=== PATIENT | male | born 1955 | race Caucasian/White ===

== ENCOUNTER 2019-10-13 20:08 | Inpatient (IN) | payer BC, SELFPAY ==
[2019-10-13] VITALS (7 sets, daily range): BP systolic 106–151; BP diastolic 80–105; PULSE 91–106; RESP 18–20; TEMP 36.7–37; O2SAT 92–99; BMI 28.9
--- NOTE | ~2019-10-13 | XR_ITS ---
EXAMINATION: XR chest 2V EXAM DATE: 10/13/2019 20:34 INDICATION: Shortness of breath. Hypertension. TECHNIQUE: Frontal and lateral projections of the chest obtained and reviewed. There is no prior edgar dy for comparison. FINDINGS: The lungs are clear. There are no pleural effusions. The cardiomediastinal silhouette is within normal limits. There is no pneumothorax suspected. The bones and soft tissues are unremarkab le. IMPRESSION: No acute cardiopulmonary findings. Reviewed, dictated and finalized at location G.
--- NOTE | ~2019-10-13 | US_ITS ---
EXAMINATION: US renal BI DATE: 10/19/2019 11:06 INDICATION: Acute kidney injury TECHNIQUE: Multiple grayscale and Doppler ultrasound images of the kidneys were obtained. COMPARISON: None. FINDINGS: The right kidney measures 10.7 x 5.6 x 5.7 cm. The left kidney measures 10.3 x 5.2 x 4.4 cm . The kidneys demonstrate normal parenchymal echogenicity. There is no hydronephrosis. The bladder de monstrates mild wall thickening but is incompletely distended.. IMPRESSION: 1. Normal kidneys without hydronephrosis. 2. Mild bladder wall thickening which could reflect incomplete distention, cystitis, or chronic outle t obstruction. Consider correlation with urinalysis. Reviewed, dictated and finalized at location A. IMPRESSION: 1. Normal kidneys without hydronephrosis. 2. Mild bladder wall thickening which could reflect incomplete distention, cyst itis, or chronic outlet obstruction. Consider correlation with urinalysis.
--- NOTE | ~2019-10-13 | NM_ITS ---
EXAMINATION: NM pulmonary perfusion DATE: 10/13/2019 21:50 INDICATION: Shortness of breath. Pulmonary embolism. TECHNIQUE: 5.38 mCi Tc-99m MAA was administered intravenously for perfusion images. Scintigraphic im ages of the chest were obtained. COMPARISON: Chest 2 views 10/13/2019 FINDINGS: Perfusion images show large defects in the upper lobes and lower lobes. ] IMPRESSION: 1. Large perfusion defects in the upper lobes and lower lobes with normal chest radiographs. The lack of ventilation images precludes assignment of a probability category for pulmonary embolism. Reviewed, dictated and finalized at location A. IMPRESSION: 1. Large perfusion defects in the upper lobes and lower lobes with normal chest radiographs. The lack of ventilation images precludes assignment of a probabil ity category for pulmonary embolism.
--- NOTE | ~2019-10-13 | US_ITS ---
EXAMINATION: US venous doppler [facility] DATE: 10/14/2019 12:18 INDICATION: Pulmonary embolism. TECHNIQUE: Grayscale ultrasound images without and with compression and Doppler ultrasound images of the bilateral lower extremity veins were obtained. COMPARISON: None. FINDINGS: The visualized portions of right common femoral vein, profunda (deep) femoral vein, femoral vein, pop liteal vein, peroneal veins, posterior tibial veins, and greater saphenous vein outflow are patent. The visualized portions of left common femoral vein, profunda femoral vein, and greater saphenous vei n outflow are patent. There is thrombus in left femoral vein, popliteal vein, and posterior tibial an d peroneal veins. IMPRESSION: 1. Acute deep vein thrombosis in the left thigh and calf. Reviewed, dictated and finalized at location A.
--- NOTE | 2019-10-13 20:18 | ECG_ITS ---
Measurements Intervals [place] Rate: 104 P: 87 MA: 164 QRS: 77 QRSD: 89 T: 113 QT: 317 QTc: 418 Interpretive Statements SINUS TACHYCARDIA NONSPECIFIC ST & T-WAVE ABNORMALITY- INF/LAT LEADS BASELINE WANDER- I, II ABNORMAL ECG Electronically Signed On 10-14-2019 7:00:03 CDT by Luke Reardon D.O.
[2019-10-13 20:26] LABS: Basophils Absolute Auto 0.1 K/mm3 (0.0-0.1); Basophils Percent Auto 0.8 % (0.2-1.2); Eosinophils Absolute Auto 0.3 K/mm3 (0-0.3); Eosinophils Percent Auto 2.2 % (0-4.4); Hematocrit 39.9 % (42.0-52.0); Hemoglobin 12.7 g/dL (14.0-18.0); Immature Granulocyte Absolute 0.07 K/mm3 (0.00-0.031); Immature Granulocyte Percent A 0.6 % (0-0.5); Lymphocytes Absolute Auto 1.76 K/mm3 (0.9-3.2); Lymphocytes Percent Auto 14.7 % (18.3-44.2); Mean Corpuscular HGB Conc 31.8 g/dl (32-36); Mean Corpuscular Hemoglobin 28.3 pg (26-34); Mean Corpuscular Volume 88.9 fl (80-100); Mean Platelet Volume 10.8 fl (7.4-10.4); Monocytes Percent Auto 8.4 % (2.6-8.5); Neutrophils Absolute Auto 8.8 K/mm3 (1.3-6.7); Neutrophils Percent Auto 73.3 % (45.5-73.1); Platelet Count Result 217 k/mm3 (150-375); Red Blood Count 4.49 M/mm3 (4.6-6.20); Red Cell Distribution Width 14.1 % (11.5-14.5)
--- NOTE | 2019-10-13 20:26 | ED.GENADULT ---
HPI - General Adult General Chief complaint: Shortness of Breath/Dyspnea Stated complaint: SOB Time Seen by Provider: 10/13/19 20:25 Source: patient and family Mode of arrival: ambulatory Limitations: no limitations History of Present Illness HPI narrative: Patient is a 64-year-old male with a history of hypertension who presents for evaluation of shortness of breath. Patient reports shortness of breath worsening over the past 36 hours, patient states he never has had this feeling before, but has been unable to ascend steps without feeling dyspneic. Patient reports left-sided pain over his chest which is now resolved. Pain occurred approximately 1 hour ago with exertion. No nausea, vomiting or diaphoresis. No pleuritic pain. 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 No history of cancer. No history of DVT. Patient is on any anticoagulation. No recent car or air travel. Dry cough recently, low-grade fever 100 Fahrenheit at home last week. Related Data Home Medications Medication Instructions Recorded Confirmed amlodipine 10 mg PO DAILY 10/13/19 10/13/19 losartan 100 mg PO DAILY 10/13/19 10/13/19 tadalafil 5 mg PO DAILY 10/13/19 10/13/19 Allergies Allergy/AdvReac Type Severity Reaction Status Date / Time No Known Allergies Allergy Verified 10/13/19 20:15 Review of Systems Review of Systems: Narrative: CONSTITUTIONAL: Reports low-grade fever EYES: Denies visual changes, redness, or discharge. ENT: Denies rhinorrhea, congestion, sore throat, or otalgia. CARDIOVASCULAR: Reports chest pain, now resolved, denies palpitations, reports mild left lower extremity swelling RESPIRATORY: Reports dry cough and shortness of breath GASTROINTESTINAL: Denies abdominal pain, nausea, vomiting, or diarrhea. GENITOURINARY: Denies dysuria or hematuria. SKIN: Denies rash or itching. MUSCULOSKELETAL: Chronic lower back pain NEUROLOGIC: Reports mild headache, denies numbness, or weakness. PMFSH Social History Social History Gender identity (if verbalized by the patient): Male Exam Narrative: Exam Narrative: GENERAL: Awake, alert, conversant HEAD: Normocephalic, atraumatic. EYES: PERRLA and EOMI. ENT: Nares clear, no rhinorrhea or epistaxis. Mucous membranes moist. NECK: Supple. CHEST: No respiratory distress, breathing even and non labored no chest wall tenderness HEART: Regular rate, sinus rhythm ABDOMEN:Non distended, non tender EXTREMITIES: Normal range of motion. Mild edema left lower extremity, tenderness along the medial aspect of the right thigh, no calf tenderness, no erythema or warmth SKIN: Warm, dry, no rash. NEURO:No focal deficits. Alert and oriented x3 Course Vital Signs Vital signs: Vital Signs Temperature 37.0 C 10/13/19 20:11 Pulse Rate 105 H 10/13/19 20:11 Respiratory Rate 20 10/13/19 20:11 Blood Pressure 106/105 H 10/13/19 20:11 Pulse Oximetry 92 10/13/19 20:11 Temperature 37.0 C 10/13/19 20:11 Pulse Rate 96 10/13/19 22:22 Respiratory Rate 20 10/13/19 22:22 Blood Pressure 119/80 10/13/19 22:22 Pulse Oximetry 93 10/13/19 22:22 Medical Decision Making MDM Narrative Medical decision making narrative: Patient presented for evaluation of chest and pleuritic chest pain. At the time of assessment, ABCs are intact and vital signs are stable. Mild tachycardia. No reproducible chest wall pain. Clinical symptoms are very concerning for PE. Laboratory results are notable for acute kidney injury which the patient does not have a history of. Patient with elevated d-dimer. Patient cannot obtain CTA due to acute kidney injury, thus obtain a perfusion scan which has multiple filling defects. We will start the patient on heparin. Patient with elevation in troponin. Elevation in BNP, all this is
[2019-10-13 20:38] LABS: Blood Urea Nitrogen 39 mg/dL (9-20); Calcium 9.4 mg/dL (8.4-10.2); Carbon Dioxide 20 mmol/L (22-30); Chloride 113 mmol/L (98-107); Estimated Glomerular Filt Rate 23; Glucose 153 mg/dL (75-110); Potassium 4.2 mmol/L (3.4-5.0); Sodium 140 mmol/L (137-145)
[2019-10-13 21:14] LABS: D Dimer 9.32 ug/mL (<0.48)
[2019-10-13 22:26] LABS: INR 1.1; Prothrombin Time 13.9 Seconds (11.1-14.7)
[2019-10-13 22:27] LABS: Partial Thromboplastin Time 32.7 SECONDS (22.3-36.8)
[2019-10-13 22:38] LABS: NT Pro B Type Natriuretic Pept 2590 PG/ML (5-100); Troponin I 0.577 ng/mL (0.000-0.034)
[2019-10-13] MEDS: HEPARIN SOD/D5W 100 UNITS/ML 25,000 UNITS/250 ML BAG 15 UNITS IV CONT (23:22)
[2019-10-13] MEDS: HEPARIN SODIUM 5,000 UNITS/ML VIAL 7500 UNITS IV PUSH (23:23)
--- NOTE | 2019-10-13 23:34 | PM.IMHP ---
H&P: HPI History of Present Illness Chief complaint: Bilateral Pulminary Emboli, NANCY Narrative: Bill Linton is a 64 year old male who has a past medical history of having hypertension. The patient has not had any past history of any heart or lung disease. He has not had any fever chills. No nausea no vomiting no diarrhea. No fever or chills. The patient has been more short of breath for the last 36 hours. 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 The patient has been less active. The patient attempted to cut grass yesterday and was more short of breath. The patient has also been complaining of some swelling to the left leg and more discomfort to the left leg. [place] like maybe he pulled a muscle. No recent travel, no recent injury, no recent surgery. No history of any cancer. Patient has been eating and drinking okay. He has not had any past history of any chronic renal disease. 2.8 today. Troponin 0.577. BNP 2590. Was read as no acute cardiopulmonary findings. The patient is on room air. IV bolus and then started on heparin drip per protocol. Blood pressure was noted to be 128/97. Patient stated he did take his blood pressure medicine today. Unable to obtain a CT scan due to his acute renal failure. It was noted and urinary no that perforation scan was noted to have multiple filling defects. Date of service is 10/13/2019 Review of Systems Review of Systems: All systems reviewed & are unremarkable except as noted in HPI and below Constitutional: Constitutional: Reports as per HPI and Reports no additional constitutional complaints Eyes: Eyes: Reports as per HPI and Reports no additional eye complaints ENT: Reports system reviewed and no additional complaints, except as documented and Reports Normal hearing present Cardiovascular: Cardiovascular: Reports no additional cardiovascular complaints Respiratory: Respiratory: Reports no additional respiratory complaints and Reports no additional respiratory complaints Gastrointestinal: Gastrointestinal: Reports as per HPI and Reports no additional gastrointestinal complaints Musculoskeletal: Musculoskeletal: Reports no additional musculoskeletal complaints Integumentary/Breasts: Skin/Breast: Reports system reviewed and no additional complaints, except as docu and Reports as per HPI Neurologic: Reports system reviewed and no additional complaints, except as documented, Reports as per HPI and Reports Normal hearing present Psychiatric: Psychiatric: Reports no additional psychiatric complaints and Reports as per HPI Endocrine: Endocrine: Reports no additional endocrine complaints Hematologic/Lymphatic: Hematologic/Lymphatic: Reports no additional hematologic/lymphatic complaints Allergic/Immunologic: Allergic/Immunologic: Reports no additional allergic/immunologic complaints PMFSH Past Medical History Medical History (Updated 10/13/19 @ 23:43 by Meenakshi Hansen NP) Hypertension Hypogonadism Surgical History Surgical History (Updated 10/13/19 @ 23:43 by Meenakshi Hansen NP) S/P appendectomy Family History Family History (Updated 10/13/19 @ 23:46 by Meenakshi Hansen NP) Mother Renal failure Father COPD (chronic obstructive pulmonary disease) Social History Social History (Updated 10/13/19 @ 23:48 by Meenakshi Hansen NP) Social History: The patient is and lives with a significant other her name is thea hernández. He desires to have her is his durable power deputy attorney general for healthcare. The patient has 6 children. Patient desires to be a full code. The patient quit smoking approximately 1 year ago. The patient smoked for about a total of 8 years. He has a pack a cigarettes a day. 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 He says that he drinks 2 or 3 times a week. 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 Smoking status: Former smoker Al
--- NOTE | 2019-10-13 23:47 | ADMGEN ---
This patient, Bill Linton, was admitted to IMU Room 214-01 FROM ER 10/13/19 2340. Patient/family oriented to hospital policies and general routines including ID bracelet, bed and alarms, visiting hours, pain management, procedures, bathroom and other care routines, personal items, smoking policy, room service/diet, and visiting hours. Valuables list has been completed. Information on how to activate the Rapid Response Team has been discussed. Patient/Family are encouraged to report perceived risks to care and to ask questions if they do not understand what they are told or what they should do.
[2019-10-14] VITALS (15 sets, daily range): BP systolic 121–167; BP diastolic 68–106; PULSE 73–91; RESP 16–20; TEMP 36.1–36.8; O2SAT 95–99
--- NOTE | 2019-10-14 | ECHO_ITS ---
Patient Info Name: Bill Linton Age: 64 years : 1955 Gender: Male Ht: 72 in Wt: 260 lbs BSA: 2.49 m2 HR: 80 bpm BP: 129 / 78 mmHg Heart Rhythm: Sinus Rhythm Technical Quality: Good Exam Date: 10/14/2019 9:38 AM Exam Location: [facility] Patient Status: Inpatient Admit Date: 10/13/2019 Staff Ordering Physician: Meenakshi Hansen NP Lead Python Developer: Kade Euceda RDCS Attending Provider: Speedy Bruce MD Referring Physician: Jade ANTON; Exam Type: CA echo dop color flow w con Study Info Indications I26.99 - Other pulmonary embolism without acute cor pulmonale Complete two-dimensional, color flow and Doppler transthoracic echocardiogram is performed with contrast to opacify the left ventrical and to improve the deliniation of the left ventrical endocarial boarders. Contrast/Agitated Saline Contrast/Ag. Saline: Definity Amount: 2.00 ml Administered By: Jyoti Caba RN Existing IV Access: Yes History/Risk Factors Bilateral pulmonary emboli w/ NANCY; HTN, SOB, trops elevated, BNP 2590. Summary 1. Left ventricular systolic function is normal, estimated at 65-70%. 2. Left ventricular chamber dimension is normal. 3. Definity contrast injected to improve visualization. 4. Right ventricular chamber dimension is mildly enlarged. 5. No significant valvular disease. 6. Right ventricle is enlarged but appears to be exhibiting good systolic function. Left Ventricle Left ventricular chamber dimension is normal. Left ventricular systolic function is normal, estimated at 65-70%. There is mild concentric increased left ventricular wall thickness. The left ventricular diastolic function is grade I diastolic dysfunction. Definity contrast injected to improve visualization. Right Ventricle Right ventricular chamber dimension is mildly enlarged. Left Atria Left atrial chamber dimension is normal. Right Atria Right atrial chamber dimension is normal. Aortic Valve The aortic valve is normal. Pulmonic Valve The pulmonic valve is not well visualized. Mitral Valve The mitral valve has normal leaflets. Tricuspid Valve The tricuspid valve leaflets are not well visualized. Pericardium/Pleural The pericardium appears normal. Aorta The aortic root size at the sinus of Valsalva is normal. Left Ventricular Outflow Tract Name Value Normal LVOT 2D LVOT Diameter 2.25 cm LVOT Doppler LVOT Peak Gradient 3 mmHg LVOT Mean Gradient 2 mmHg LVOT VTI 12.40 cm LVOT VTI/AV VTI Ratio 0.74 LVOT Stroke Volume 49.17 ml LVOT CO 3.99 l/min LVOT CI 1.60 L/min/m2 Mitral Valve Name Value Normal MV Doppler
[2019-10-14 06:11] LABS: Basophils Absolute Auto 0.1 K/mm3 (0.0-0.1); Basophils Percent Auto 0.6 % (0.2-1.2); Eosinophils Absolute Auto 0.4 K/mm3 (0-0.3); Eosinophils Percent Auto 2.7 % (0-4.4); Hematocrit 38.8 % (42.0-52.0); Hemoglobin 12.5 g/dL (14.0-18.0); Immature Granulocyte Absolute 0.07 K/mm3 (0.00-0.031); Immature Granulocyte Percent A 0.5 % (0-0.5); Lymphocytes Absolute Auto 2.94 K/mm3 (0.9-3.2); Mean Corpuscular HGB Conc 32.2 g/dl (32-36); Mean Corpuscular Hemoglobin 28.4 pg (26-34); Mean Corpuscular Volume 88.2 fl (80-100); Mean Platelet Volume 10.5 fl (7.4-10.4); Monocytes Absolute Auto 1.1 K/mm3 (0.1-0.6); Monocytes Percent Auto 8.7 % (2.6-8.5); Neutrophils Absolute Auto 8.2 K/mm3 (1.3-6.7); Neutrophils Percent Auto 64.5 % (45.5-73.1); Platelet Count Result 199 k/mm3 (150-375); Red Cell Distribution Width 14.1 % (11.5-14.5); White Blood Count 12.8 K/mm3 (4.5-10.0)
[2019-10-14 06:20] LABS: Partial Thromboplastin Time 104.6 SECONDS (22.3-36.8)
[2019-10-14 06:21] LABS: Alanine Aminotransferase 66 U/L (4-50); Alkaline Phosphatase 76 U/L (38-126); Aspartate Amino Transferase 40 U/L (17-59); Bilirubin,Total 0.3 mg/dL (0.2-1.3); Blood Urea Nitrogen 40 mg/dL (9-20); Calcium 9.1 mg/dL (8.4-10.2); Carbon Dioxide 19 mmol/L (22-30); Chloride 113 mmol/L (98-107); Estimated CRCL calculation 38 ml/min; Estimated Glomerular Filt Rate 26; Glucose 105 mg/dL (75-110); Magnesium 2.1 mg/dL (1.6-2.3); Potassium 4.2 mmol/L (3.4-5.0); Sodium 141 mmol/L (137-145)
[2019-10-14 07:58] LABS: Troponin I 0.989 ng/mL (0.000-0.034)
--- NOTE | 2019-10-14 09:04 | PM.IMPN ---
Progress Note: A&P Assessment and Plan (1) Pulmonary embolism: Qualifiers: Acute cor pulmonale presence: unspecified Chronicity: acute Pulmonary embolism type: unspecified Qualified Code(s): I26.99 - Other pulmonary embolism without acute cor pulmonale Code(s): I26.99 - Other pulmonary embolism without acute cor pulmonale Status: Suspected Assessment and Plan: Patient presents with acute episodes of SOB x 2 days with left-sided chest pain started when mowing the yard over the weekend, intermittent L leg swelling x 2-3 weeks. No previous cardiac history noted. No previous personal history of VTE or malignancy. V/Q scan demonstrates large perfusion defects in the upper lobes and lower lobes with normal chest radiographs - suspect bilateral PE. CTA not obtained due to acute renal failure. Heparin gtt initiated. (2) DVT (deep venous thrombosis): Qualifiers: DVT location: lower extremity Affected thrombotic vein of extremity: femoral Chronicity: acute Laterality: left Qualified Code(s): I82.412 - Acute embolism and thrombosis of left femoral vein Code(s): I82.409 - Acute embolism and thrombosis of unspecified deep veins of unspecified lower extremity Status: Acute Assessment and Plan: Left femoral, popliteal vein, posterior tib and peroneal vein DVT. See above. Continue heparin gtt for now given the extent of DVT and bilateral PEs. Care coordination inquiring pricing for NOAC. (3) Elevated troponin: Code(s): R79.89 - Other specified abnormal findings of blood chemistry Status: Acute Assessment and Plan: In the setting of bilateral PE. Trending down this AM. Brief episodes of chest pain x2 while feeling short of breath this weekend, none this AM. 0.577 -> 1.31 --> 1.30 --> 0.989. :: BNP 2590 Echocardiogram shows mild RV enlargement with normal systolic function EF 65-70%. Appreciate cardiology consultation and recommendations. (4) Acute renal failure: Qualifiers: Acute renal failure type: unspecified Qualified Code(s): N17.9 - Acute kidney failure, unspecified Code(s): N17.9 - Acute kidney failure, unspecified Status: Acute Assessment and Plan: Cr 2.8 yesterday, improved to 2.5 this AM. Unsure of chronicity or baseline, no previous labs for comparison. Gentle IV hydration, avoid nephrotoxic agents. Trend renal function and monitor urine output. (5) Hypertension: Qualifiers: Hypertension type: essential hypertension Qualified Code(s): I10 - Essential (primary) hypertension Code(s): I10 - Essential (primary) hypertension Status: Chronic Assessment and Plan: BP 129/78 this AM maintained on home Norvasc. Home losartan held due to renal function. Monitor BP and adjust treatment as needed. Subjective Date/time seen: 10/14/19 0900 Interval history: Mr. Linton is a 64yo M admitted with exertional dyspnea and chest pain with suspected bilateral pulmonary emboli. He describes that Tuesday 10/10 he was mowing his lawn and noticed new shortness of breath. He describes he had a pulling sensation to his left chest that was transient during the time he was trying to catch his breath. He notes the chest pain went away and then recurred yesterday during another episode where he could not catch his breath. No radiation to jaw or arm, diaphoresis or nausea with the chest pain. He tells me he has no chest pain this morning. He does not feel short of breath at rest. He denies nausea, vomiting, or abdominal pain. Tells me his left leg has been intermittently swelling over the last 2 to 3 weeks. He is feeling well this morning and his only complaint is that he wants to eat. Review of Systems Review of Systems: Narrative: Twelve systems were reviewed with pertine
[2019-10-14] MEDS: AMLODIPINE BESYLATE 5 MG TABLET 10 MG PO (09:24)
[2019-10-14] MEDS: PERFLUTREN LIPID MICROSPHERES 1.5 ML VIAL DILUTED TO 10 ML TOTAL VOLUME (10:15)
[2019-10-14] MEDS: SODIUM CHLORIDE 0.9% IV 1,000 ML 70 ML IV CONT (10:21)
--- NOTE | 2019-10-14 11:42 | PM.CNCAR ---
Assessment and Plan Additional Plan 64-year-old white male with ; Elevation in troponin with bilateral pulmonary embolization presumably related to RV pressure overload/strain. I do not see any clinical evidence or electrocardiographic evidence to make me suspicious of an acute coronary syndrome. The patient did have symptoms very suspicious of a PE with likely a left lower extremity DVT leading up to all this. He has probably been showering embolic events for awhile since there appeared to be perfusion deficits in both lungs. I understand the reason that a CTA was not done I do not understand the reason that a ventilation scan was not done at the same time as his nuclear perfusion study last evening. An echocardiogram has already been requested by the primary service after rounds I will be able to read that and provide any further recommendations. At this point the only cardiovascular recommendation is to provide systemic anticoagulation. The oral anticoagulation drugs should be investigated by the case workers to see if any of them are affordable. I did speak to the patient has some length about the other option which would be warfarin. Vj Song MD [facility] History of Present Illness History of Present Illness Consult date/time: Date of service: 10/14/19 11:42 Reason For Visit: Bilateral Pulminary Emboli, NANCY Narrative: This is a 64-year-old patient I am seeing at the request of the hospitalist service because of elevation in troponin levels and exertional dyspnea. Order so as the patient is also being seen because of exertional chest pain, I am not obtaining any history of exertional chest pain at this time. Patient states that he came to the emergency room yesterday because of problematic dyspnea with a 2 exertion that began Monday of last week. He states he is normally able to conduct at usual household activities without undue shortness of breath. On Monday he noted he was trying to mow his lawn and was unable to do the job without stopping several times because of dyspnea. After that he started to notice that other activities that required more than modest walking were triggering shortness of breath when this continue to be problematic he came to the emergency room for evaluation. He is in denies experiencing any chest pain pressure or heaviness he denies any orthopnea or PND. He states he has had some left lower extremity edema in a positional fashion for about 2 months. He has not noticed any redness or inflammation in the leg but he has noticed that when he is up on his feet most of the day his left leg becomes edematous and he has never had this noticed before. His past medical history is mostly consistent with hypertension and a prior history of smoking he quit smoking a number of years ago however. Denies any knowledge of diabetes or dyslipidemia. The patient being seen in the emergency room was found to have evidence of bilateral pulmonary emboli on a perfusion scan that was done. He had a perfusion scan done rather than a CTA because of renal insufficiency. His laboratory data demonstrated a creatinine of 2.8 in the emergency room. He was given the diagnosis of acute renal failure, I am not sure that we know this is acute or at least previously on diagnosed. The patient's ECG does not show any acute abnormalities an echocardiogram was done this morning which has yet to be interpreted. Troponin levels were done which are slightly elevated but not significantly rising or falling and for these reasons we were consulted to see him today. He is resting comfortably in bed with an IV heparin infusion running at this time. At the end of my interview with him the patient is being taken down to Radiology for a venous Doppler of his lower extremities. Review of Systems Constitutional: Constitutional: Reports fatigue Eyes: Eyes: Reports no additional eye complaints ENT: Reports system reviewed and no additional complaints, except as
[2019-10-14 11:52] LABS: Partial Thromboplastin Time 67.6 SECONDS (22.3-36.8)
[2019-10-14] MEDS: HEPARIN SODIUM 5,000 UNITS/ML VIAL 4000 UNITS IV PUSH (12:43)
[2019-10-14] MEDS: HEPARIN SOD/D5W 100 UNITS/ML 25,000 UNITS/250 ML BAG 17 UNITS IV CONT (15:52)
[2019-10-14 19:15] LABS: Partial Thromboplastin Time 105.1 SECONDS (22.3-36.8)
[2019-10-15] VITALS (13 sets, daily range): BP systolic 127–159; BP diastolic 75–82; PULSE 64–98; RESP 18–20; TEMP 35.9–36.9; O2SAT 97–98
[2019-10-15] MEDS: SODIUM CHLORIDE 0.9% IV 1,000 ML 70 ML IV CONT (01:50)
[2019-10-15] MEDS: HEPARIN SOD/D5W 100 UNITS/ML 25,000 UNITS/250 ML BAG 15 UNITS IV CONT (07:15)
[2019-10-15 08:11] LABS: Basophils Absolute Auto 0.1 K/mm3 (0.0-0.1); Basophils Percent Auto 0.8 % (0.2-1.2); Eosinophils Absolute Auto 0.4 K/mm3 (0-0.3); Hematocrit 39.9 % (42.0-52.0); Hemoglobin 12.7 g/dL (14.0-18.0); Immature Granulocyte Absolute 0.05 K/mm3 (0.00-0.031); Immature Granulocyte Percent A 0.5 % (0-0.5); Lymphocytes Absolute Auto 2.78 K/mm3 (0.9-3.2); Lymphocytes Percent Auto 25.6 % (18.3-44.2); Mean Corpuscular HGB Conc 31.8 g/dl (32-36); Mean Corpuscular Hemoglobin 28.5 pg (26-34); Mean Corpuscular Volume 89.7 fl (80-100); Mean Platelet Volume 10.7 fl (7.4-10.4); Monocytes Percent Auto 8.7 % (2.6-8.5); Neutrophils Absolute Auto 6.6 K/mm3 (1.3-6.7); Neutrophils Percent Auto 60.4 % (45.5-73.1); Platelet Count Result 200 k/mm3 (150-375); Red Blood Count 4.45 M/mm3 (4.6-6.20); Red Cell Distribution Width 14.1 % (11.5-14.5); White Blood Count 10.9 K/mm3 (4.5-10.0)
[2019-10-15 08:24] LABS: Partial Thromboplastin Time 80.5 SECONDS (22.3-36.8)
[2019-10-15 08:26] LABS: Blood Urea Nitrogen 39 mg/dL (9-20); Carbon Dioxide 19 mmol/L (22-30); Chloride 111 mmol/L (98-107); Estimated CRCL calculation 34 ml/min; Estimated Glomerular Filt Rate 23; Glucose 105 mg/dL (75-110); Magnesium 1.9 mg/dL (1.6-2.3); Phosphorus 3.4 mg/dL (2.5-4.5); Potassium 4.6 mmol/L (3.4-5.0); Sodium 139 mmol/L (137-145)
[2019-10-15] MEDS: AMLODIPINE BESYLATE 5 MG TABLET 10 MG PO (09:11)
--- NOTE | 2019-10-15 09:52 | PM.PNCARD ---
Progress Note: A&P Assessment and Plan (1) Elevated troponin: Code(s): R79.89 - Other specified abnormal findings of blood chemistry Status: Acute Assessment and Plan: Elevated troponin with bilateral pulmonary embolism most likely related to right ventricular pressure overload/strain. Echo 10/14/2019: Left ventricular systolic function is normal, estimated at 65-70%. Left ventricular chamber dimension is normal. Definity contrast injected to improve visualization. Right ventricular chamber dimension is mildly enlarged. No significant valvular disease. Right ventricle is enlarged but appears to be exhibiting good systolic function. No ischemic symptoms. (2) Pulmonary embolism: Qualifiers: Acute cor pulmonale presence: unspecified Chronicity: acute Pulmonary embolism type: unspecified Qualified Code(s): I26.99 - Other pulmonary embolism without acute cor pulmonale Code(s): I26.99 - Other pulmonary embolism without acute cor pulmonale Status: Suspected Assessment and Plan: Management per hospitalist (3) DVT (deep venous thrombosis): Qualifiers: DVT location: lower extremity Affected thrombotic vein of extremity: femoral Chronicity: acute Laterality: left Qualified Code(s): I82.412 - Acute embolism and thrombosis of left femoral vein Code(s): I82.409 - Acute embolism and thrombosis of unspecified deep veins of unspecified lower extremity Status: Acute Assessment and Plan: Management per hospital Additional Plan No further cardiac recommendations Cardiology will sign off. Plan discussed with Dr Shah [id number] 10/15/2019 Subjective Date/time seen: 10/15/19 09:52 Interval history: Follow-up for: Elevated troponin, bilateral pulmonary embolus and DVT Date of service: 10/15/2019 Subjective: Denied chest discomfort, shortness of breath, lightheadedness or palpitations. Review of Systems Constitutional: Constitutional: Denies fatigue Eyes: Eyes: Reports no additional eye complaints ENT: Reports Normal hearing present and Denies dizziness Cardiovascular: Cardiovascular: Reports leg edema and Denies dyspnea on exertion Respiratory: Respiratory: Denies dyspnea on exertion Gastrointestinal: Gastrointestinal: Denies abdominal pain, Denies nausea and Denies vomiting Genitourinary: Genitourinary: Denies hematuria Musculoskeletal: Musculoskeletal: Denies back pain Integumentary/Breasts: Skin/Breast: Reports dry skin Neurologic: Reports Normal hearing present and Denies dizziness Psychiatric: Psychiatric: Denies anxiety Endocrine: Endocrine: Denies fatigue Hematologic/Lymphatic: Hematologic/Lymphatic: Denies easy bleeding and Denies easy bruising Allergic/Immunologic: Allergic/Immunologic: Denies wheezing Exam Const: General: cooperative, comfortable and no acute distress Nutritional Appearance: overweight Orientation/consciousness: patient oriented x3 Limitations: no limitations HENMT: Mouth: Yes moist mucous membranes Eyes: Sclera: sclerae normal Pupils: Equal, round and reactive pupils present Neck: Neck: supple Other: Normal carotid upstrokes no bruits Resp: Effort & Inspection: normal respiratory effort Auscultation: clear to auscultation bilaterally Cardio: Rate: regular rate Rhythm: regular rhythm Heart sounds: no murmurs Peripheral pulses: Peripheral pulses 2+ throughout Other: No murmur no gallop no rub, PMI is not palpable GI: GI Palp: Yes Soft to palpation Auscultation: normal bowel sounds Skin: General skin exam: normal color Neuro: General: patient oriented x3 Cranial nerves: Yes Equal, round and reactive pupils present Cognition (Neuro): normal cognition Speech: normal speech Extrem: General: no pedal edema, no calf tenderness and other (Left lower leg slightly larger than right) Psych: Appearance: grossly n
[2019-10-15 13:50] LABS: Partial Thromboplastin Time 75.7 SECONDS (22.3-36.8)
--- NOTE | 2019-10-15 15:23 | PM.IMPN ---
Progress Note: A&P Assessment and Plan (1) Pulmonary embolism: Qualifiers: Acute cor pulmonale presence: unspecified Chronicity: acute Pulmonary embolism type: unspecified Qualified Code(s): I26.99 - Other pulmonary embolism without acute cor pulmonale Code(s): I26.99 - Other pulmonary embolism without acute cor pulmonale Status: Suspected Assessment and Plan: ------imaging studies show probable blood clot in which the patient is on a heparin drip for. He had shortness of breath and chest pain before coming into the hospital which have both improved. He is now walking around the room without any issue. He has decided that he is going to go with the warfarin and understands the necessity of blood draws. He needs to be bridged and I talked to him about Lovenox injections. If insurance is willing to cover, the patient is interested in the injections so he can be discharged from the hospital sooner. If not he understands he will need to be here for 5 days. I have called his primary care physician, Dr. Speedy Vargas [phone] who was not in the office today but will be tomorrow. I will give him a call then and see if he will follow the INR. Continue heparin at this time (2) DVT (deep venous thrombosis): Qualifiers: DVT location: lower extremity Affected thrombotic vein of extremity: femoral Chronicity: acute Laterality: left Qualified Code(s): I82.412 - Acute embolism and thrombosis of left femoral vein Code(s): I82.409 - Acute embolism and thrombosis of unspecified deep veins of unspecified lower extremity Status: Acute Assessment and Plan: -----extensive Left femoral, popliteal vein, posterior tib and peroneal vein DVT. Likely due to more sedentary life since the [id number] order. No family history or personal history of blood clots. Continue heparin (3) Elevated troponin: Code(s): R79.89 - Other specified abnormal findings of blood chemistry Status: Acute Assessment and Plan: -----In the setting of bilateral PE. Echo does not show any right heart strain. Cardiology does not suspect ACS. No chest pain reported (4) Hypertension: Qualifiers: Hypertension type: essential hypertension Qualified Code(s): I10 - Essential (primary) hypertension Code(s): I10 - Essential (primary) hypertension Status: Chronic Assessment and Plan: ------last blood pressure 133/79. Continue [facility] (5) Chronic kidney disease: Code(s): N18.9 - Chronic kidney disease, unspecified Status: Acute Assessment and Plan: -----records from October 2018 shows CKD with the last creatinine 2.23. Today he is at 2.8. He likely has chronic kidney disease although the patient is unaware of this. I told him he would benefit from seeing a client leader and that he should talk to his primary care physician about that. He agreed. Time Spent With Patient Time with patient: 25 - 35 minutes Subjective Date/time seen: 10/15/19 15:23 Interval history: Pt is a 64-year-old male here for pulmonary emboli. Patient was seen today and is doing great. He has no shortness of breath, dyspnea on exertion, chest pain, fevers, chills, abdominal pain, or a lack of appetite. He says that since he has been laid off for the last 7 weeks he has been sitting around more. He has never had a history of a blood clot or family history of blood clots. He said that he would be willing to give himself Lovenox injections and I talked to his live-in girlfriend Lakeshia who said she would help. Review of Systems Review of Systems: All systems reviewed & are unremarkable except as noted in HPI and below Exam Narrative: Exam Narrative: General: Well developed well nourished patient walking around the room in no acute distress HEENT: normocephalic Neck: supple Neuro: Alert and oriented x4 CV:RRR. Telemetry without any significant alarm
[2019-10-15] MEDS: WARFARIN (*PBKC) 5 MG TABLET PO (16:49)
--- NOTE | 2019-10-15 17:09 | PC.NURSE ---
This patient, Bill Linton, was transferred to [facility] on 10/15/19 at 1700. Personal belongings sent with patient. Report given to GLEN Agudelo. Appropriate documentation sent with patient.
--- NOTE | 2019-10-15 17:53 | PC.NURSE ---
transfer from IMU today at 1710. Resting in bed without any complaints. Call light in reach instructed to call for assistance as needed.
[2019-10-16] VITALS (12 sets, daily range): BP systolic 130–147; BP diastolic 69–86; PULSE 61–87; RESP 16–18; TEMP 36.4–37.4; O2SAT 95–98
[2019-10-16] MEDS: HEPARIN SOD/D5W 100 UNITS/ML 25,000 UNITS/250 ML BAG 15 UNITS IV CONT (01:08)
[2019-10-16 05:16] LABS: INR 1.1; Prothrombin Time 14.1 Seconds (11.1-14.7)
[2019-10-16 05:17] LABS: Partial Thromboplastin Time 61.2 SECONDS (22.3-36.8)
[2019-10-16 05:30] LABS: Hematocrit 35.4 % (42.0-52.0); Hemoglobin 11.5 g/dL (14.0-18.0); Mean Corpuscular HGB Conc 32.5 g/dl (32-36); Mean Corpuscular Hemoglobin 28.6 pg (26-34); Mean Corpuscular Volume 88.1 fl (80-100); Mean Platelet Volume 10.9 fl (7.4-10.4); Platelet Count Result 191 k/mm3 (150-375); Red Blood Count 4.02 M/mm3 (4.6-6.20); Red Cell Distribution Width 13.8 % (11.5-14.5); White Blood Count 10.4 K/mm3 (4.5-10.0)
[2019-10-16 05:31] LABS: Blood Urea Nitrogen 38 mg/dL (9-20); Calcium 9.1 mg/dL (8.4-10.2); Carbon Dioxide 23 mmol/L (22-30); Chloride 110 mmol/L (98-107); Estimated CRCL calculation 34 ml/min; Estimated Glomerular Filt Rate 23; Glucose 101 mg/dL (75-110); Potassium 4.4 mmol/L (3.4-5.0); Sodium 138 mmol/L (137-145)
[2019-10-16] MEDS: AMLODIPINE BESYLATE 5 MG TABLET 10 MG PO (08:27)
[2019-10-16] MEDS: ENOXAPARIN 120 MG/0.8 ML SYRINGE SUB-Q ×2 (12:49→23:27)
--- NOTE | 2019-10-16 16:25 | PM.IMPN ---
Progress Note: A&P Assessment and Plan (1) Pulmonary embolism: Qualifiers: Acute cor pulmonale presence: unspecified Chronicity: acute Pulmonary embolism type: unspecified Qualified Code(s): I26.99 - Other pulmonary embolism without acute cor pulmonale Code(s): I26.99 - Other pulmonary embolism without acute cor pulmonale Status: Suspected Assessment and Plan: ------imaging studies show probable blood clot. He is now on Lovenox with warfarin. INR 1.1. He is unable to bridge at home since he has no one to watch his INR. Plan to keep him here in the hospital another 4 days, at least, until he is therapeutic. Goal INR will 2-3. He had shortness of breath and chest pain before coming into the hospital which have both improved. He is now walking around the room without any issue. I have called his primary care physician, Dr. Speedy Vargas who is going to see him outpatient next Monday (2) DVT (deep venous thrombosis): Qualifiers: DVT location: lower extremity Affected thrombotic vein of extremity: femoral Chronicity: acute Laterality: left Qualified Code(s): I82.412 - Acute embolism and thrombosis of left femoral vein Code(s): I82.409 - Acute embolism and thrombosis of unspecified deep veins of unspecified lower extremity Status: Acute Assessment and Plan: -----extensive Left femoral, popliteal vein, posterior tib and peroneal vein DVT. Likely due to more sedentary life since the [id number] order. No family history or personal history of blood clots. Continue Lovenox and warfarin (3) Elevated troponin: Code(s): R79.89 - Other specified abnormal findings of blood chemistry Status: Acute Assessment and Plan: -----In the setting of bilateral PE. Echo does not show any right heart strain. Cardiology does not suspect ACS. No chest pain reported (4) Hypertension: Qualifiers: Hypertension type: essential hypertension Qualified Code(s): I10 - Essential (primary) hypertension Code(s): I10 - Essential (primary) hypertension Status: Chronic Assessment and Plan: ------last blood pressure 146/79. Continue Norvasc (5) Chronic kidney disease: Code(s): N18.9 - Chronic kidney disease, unspecified Status: Acute Assessment and Plan: -----records from October 2018 shows CKD with the last creatinine 2.23. Today he is at 2.8. He likely has chronic kidney disease although the patient is unaware of this. I told him he would benefit from seeing a pediatric ophthalmologist and that he should talk to his primary care physician about that. He agreed. Subjective Date/time seen: 10/16/19 16:25 Interval history: Pt is a 64-year-old male here for pulmonary emboli. Patient was seen today and is doing great. He has no shortness of breath, dyspnea on exertion, chest pain, fevers, chills, abdominal pain, or a lack of appetite. No new complaints. Exam Narrative: Exam Narrative: General: Well developed well nourished patient walking around the room in no acute distress HEENT: normocephalic Neck: supple Neuro: Alert and oriented x4 CV:RRR. Telemetry without any significant alarm reviews Resp:CTA Abd: Soft, non distended. No pain to palpation. Positive bowel sounds Extremities: Left leg mildly more swollen. No erythema or tenderness. Sensation and pulses intact. Objective Data Vital Signs Vital Signs: Vital Signs - 24 hr 10/15/19 17:08 10/15/19 20:00 10/15/19 22:00 Temperature 96.7 F L 98.4 F Pulse Rate 64 67 79 Respiratory Rate 20 20 Blood Pressure 144/80 H 133/76 Pulse Oximetry 98 97 10/16/19 00:00 10/16/19 02:00 10/16/19 04:00 Temperature 97.9 F Pulse Rate 77 62 83 Respiratory Rate 16 Blood Pressure 130/77 Pulse Oximetry 95 10/16/19 05:45 10/16/19 08:00 10/16/19 10:00 Temperature 98.4 F 97.6 F Pulse Rate 66 66 69 Respiratory Rate 16 16 16 Blood Pressure
[2019-10-16] MEDS: WARFARIN (*PBKC) 5 MG TABLET PO (16:52)
[2019-10-17] VITALS (10 sets, daily range): BP systolic 120–141; BP diastolic 67–78; PULSE 64–88; RESP 12–16; TEMP 36.8–37.2; O2SAT 94–97
[2019-10-17 06:24] LABS: Hematocrit 35.4 % (42.0-52.0); Hemoglobin 11.3 g/dL (14.0-18.0); Mean Corpuscular HGB Conc 31.9 g/dl (32-36); Mean Corpuscular Hemoglobin 28.2 pg (26-34); Mean Corpuscular Volume 88.3 fl (80-100); Mean Platelet Volume 10.7 fl (7.4-10.4); Platelet Count Result 182 k/mm3 (150-375); Red Blood Count 4.01 M/mm3 (4.6-6.20); Red Cell Distribution Width 13.7 % (11.5-14.5)
[2019-10-17 06:32] LABS: INR 1.1; Prothrombin Time 13.6 Seconds (11.1-14.7)
[2019-10-17] MEDS: ENOXAPARIN 120 MG/0.8 ML SYRINGE SUB-Q ×2 (08:44→19:58)
[2019-10-17] MEDS: AMLODIPINE BESYLATE 5 MG TABLET 10 MG PO (08:45)
--- NOTE | 2019-10-17 13:34 | PM.IMPN ---
Progress Note: A&P Assessment and Plan (1) Pulmonary embolism: Qualifiers: Acute cor pulmonale presence: unspecified Chronicity: acute Pulmonary embolism type: unspecified Qualified Code(s): I26.99 - Other pulmonary embolism without acute cor pulmonale Code(s): I26.99 - Other pulmonary embolism without acute cor pulmonale Status: Suspected Assessment and Plan: ------imaging studies show probable blood clot. He is now on Lovenox with warfarin. INR 1.1. He is unable to bridge at home since he has no one to watch his INR. Plan to keep him here in the hospital until his INR is theraputic, minimum of 5 days with bridge. Goal INR will 2-3. He had shortness of breath and chest pain before coming into the hospital which have both improved. He is now walking around the room without any issue. I have called his primary care physician, Dr. Speedy Vargas who is going to see him outpatient next Monday. Tele will be discontinued since has no cardiac complaints and his echo has been reviewed. (2) DVT (deep venous thrombosis): Qualifiers: DVT location: lower extremity Affected thrombotic vein of extremity: femoral Chronicity: acute Laterality: left Qualified Code(s): I82.412 - Acute embolism and thrombosis of left femoral vein Code(s): I82.409 - Acute embolism and thrombosis of unspecified deep veins of unspecified lower extremity Status: Acute Assessment and Plan: -----extensive Left femoral, popliteal vein, posterior tib and peroneal vein DVT. Likely due to more sedentary life since the [id number] order. No family history or personal history of blood clots. Continue Lovenox and warfarin (3) Elevated troponin: Code(s): R79.89 - Other specified abnormal findings of blood chemistry Status: Acute Assessment and Plan: -----In the setting of bilateral PE. Echo does not show any right heart strain. Cardiology does not suspect ACS. No chest pain reported (4) Hypertension: Qualifiers: Hypertension type: essential hypertension Qualified Code(s): I10 - Essential (primary) hypertension Code(s): I10 - Essential (primary) hypertension Status: Chronic Assessment and Plan: ------last blood pressure 120/73. Continue Norvasc (5) Chronic kidney disease: Code(s): N18.9 - Chronic kidney disease, unspecified Status: Acute Assessment and Plan: -----records from October 2018 shows CKD with the last creatinine 2.23. He likely has chronic kidney disease although the patient is unaware of this. I told him he would benefit from seeing a spout liner and that he should talk to his primary care physician about that. He agreed. Subjective Date/time seen: 10/17/19 13:34 Interval history: Pt is a 64-year-old male here for pulmonary emboli. Patient was seen today and is doing great. He has no shortness of breath, dyspnea on exertion, chest pain, fevers, chills, abdominal pain, or a lack of appetite. No new complaints other than having to urinate in the urinal. Exam Narrative: Exam Narrative: General: Well developed well nourished patient walking around the room in no acute distress HEENT: normocephalic Neck: supple Neuro: Alert and oriented x4 CV:RRR. Telemetry without any significant alarm reviews Resp:CTA Abd: Soft, non distended. No pain to palpation. Positive bowel sounds Extremities: Left leg mildly more swollen. No erythema or tenderness. Sensation and pulses intact. Objective Data Vital Signs Vital Signs: Vital Signs - 24 hr 10/16/19 14:00 10/16/19 16:00 10/16/19 18:00 Temperature 99.3 F 98.3 F Pulse Rate 70 70 61 Respiratory Rate 17 18 Blood Pressure 146/79 H 141/69 H Pulse Oximetry 96 97 10/16/19 20:00 10/16/19 22:00 10/17/19 00:00 Temperature 98.6 F Pulse Rate 83 61 70 Respiratory Rate 16 Blood Pressure 144/86 H Pulse Oximetry 98 10/17/19 02
[2019-10-17] MEDS: WARFARIN (*PBKC) 5 MG TABLET PO (16:08)
[2019-10-18 05:40] VITALS: BP 134/84; PULSE 67; RESP 16; TEMP 36.7; O2SAT 99
[2019-10-18 05:52] LABS: Hematocrit 35.6 % (42.0-52.0); Hemoglobin 11.5 g/dL (14.0-18.0)
[2019-10-18 06:03] LABS: INR 1.2; Prothrombin Time 14.4 Seconds (11.1-14.7)
[2019-10-18 06:48] LABS: Blood Urea Nitrogen 37 mg/dL (9-20); Calcium 8.9 mg/dL (8.4-10.2); Carbon Dioxide 21 mmol/L (22-30); Chloride 110 mmol/L (98-107); Estimated CRCL calculation 37 ml/min; Estimated Glomerular Filt Rate 25; Glucose 98 mg/dL (75-110); Potassium 4.5 mmol/L (3.4-5.0); Sodium 138 mmol/L (137-145)
[2019-10-18] MEDS: ENOXAPARIN 120 MG/0.8 ML SYRINGE SUB-Q ×2 (08:04→20:21)
[2019-10-18] MEDS: AMLODIPINE BESYLATE 5 MG TABLET 10 MG PO (08:04)
[2019-10-18 10:00] VITALS: BP 130/78; PULSE 62; RESP 16; TEMP 37.2; O2SAT 98
[2019-10-18 14:22] VITALS: BP 139/71; PULSE 70; RESP 16; TEMP 37.2; O2SAT 95
--- NOTE | 2019-10-18 15:21 | PM.IMPN ---
Progress Note: A&P Assessment and Plan (1) Pulmonary embolism: Qualifiers: Acute cor pulmonale presence: unspecified Chronicity: acute Pulmonary embolism type: unspecified Qualified Code(s): I26.99 - Other pulmonary embolism without acute cor pulmonale Code(s): I26.99 - Other pulmonary embolism without acute cor pulmonale Status: Suspected Assessment and Plan: ------imaging studies show probable blood clot. He is now on Lovenox with warfarin. INR 1.2. He is unable to bridge at home since he has no one to watch his INR. Plan to keep him here in the hospital until his INR is theraputic, minimum of 5 days with bridge. Goal INR will 2-3. He had shortness of breath and chest pain before coming into the hospital which have both improved. He is now walking around the room without any issue. I have called his primary care physician, Dr. Speedy Vargas who is going to see him outpatient next Monday. (2) DVT (deep venous thrombosis): Qualifiers: DVT location: lower extremity Affected thrombotic vein of extremity: femoral Chronicity: acute Laterality: left Qualified Code(s): I82.412 - Acute embolism and thrombosis of left femoral vein Code(s): I82.409 - Acute embolism and thrombosis of unspecified deep veins of unspecified lower extremity Status: Acute Assessment and Plan: -----extensive Left femoral, popliteal vein, posterior tib and peroneal vein DVT. Likely due to more sedentary life since the ixyl-[id number]-[id number] order. No family history or personal history of blood clots. Continue Lovenox and warfarin (3) Elevated troponin: Code(s): R79.89 - Other specified abnormal findings of blood chemistry Status: Acute Assessment and Plan: -----In the setting of bilateral PE. Echo does not show any right heart strain. Cardiology does not suspect ACS. No chest pain reported (4) Hypertension: Qualifiers: Hypertension type: essential hypertension Qualified Code(s): I10 - Essential (primary) hypertension Code(s): I10 - Essential (primary) hypertension Status: Chronic Assessment and Plan: ------last blood pressure 139/71. Continue Norvasc (5) Chronic kidney disease: Code(s): N18.9 - Chronic kidney disease, unspecified Status: Acute Assessment and Plan: -----records from October 2018 shows CKD with the last creatinine 2.23. He likely has chronic kidney disease although the patient is unaware of this. I told him he would benefit from seeing a quality nurse and that he should talk to his primary care physician about that. He agreed and is going to follow up with Dr. Rubio or megan. Subjective Date/time seen: 10/18/19 15:21 Interval history: Pt is a 64-year-old male here for pulmonary emboli. Patient was seen today and is doing great. He has no shortness of breath, dyspnea on exertion, chest pain, fevers, chills, abdominal pain, or a lack of appetite. No new complaints. We had a discussion about no NSAIDs and consistent leafy green diet. Exam Narrative: Exam Narrative: General: Well developed well nourished patient walking around the room in no acute distress HEENT: normocephalic Neck: supple Neuro: Alert and oriented x4 CV:RRR. Resp:CTA Abd: Soft, non distended. No pain to palpation. Positive bowel sounds Extremities: Left leg mildly more swollen. No erythema or tenderness. Sensation and pulses intact. Objective Data Vital Signs Vital Signs: Vital Signs - 24 hr 10/17/19 18:00 10/17/19 20:00 10/18/19 05:40 Temperature 99 F 98.3 F 98.0 F Pulse Rate 64 64 67 Respiratory Rate 12 16 16 Blood Pressure 141/78 H 140/75 134/84 Pulse Oximetry 97 97 99 10/18/19 10:00 10/18/19 14:22 Temperature 99.0 F 99.0 F Pulse Rate 62 70 Respiratory Rate 16 16 Blood Pressure 130/78 139/71 Pulse Oximetry 98 95 Intake/Output Intake/Output: Intake & Output 10/15/19 05
[2019-10-18] MEDS: WARFARIN (*PBKC) 5 MG TABLET PO (16:43)
[2019-10-18 18:00] VITALS: BP 150/79; PULSE 62; RESP 16; TEMP 36.7; O2SAT 99
[2019-10-18 22:00] VITALS: BP 158/79; PULSE 61; RESP 16; TEMP 36.2; O2SAT 98
[2019-10-19] VITALS (7 sets, daily range): BP systolic 139–160; BP diastolic 72–90; PULSE 60–67; RESP 18; TEMP 36.2–36.8; O2SAT 95–99
[2019-10-19 05:10] LABS: Hematocrit 34.8 % (42.0-52.0); Hemoglobin 11.2 g/dL (14.0-18.0)
[2019-10-19 05:39] LABS: INR 1.2; Prothrombin Time 14.4 Seconds (11.1-14.7)
[2019-10-19] MEDS: AMLODIPINE BESYLATE 5 MG TABLET 10 MG PO (08:36)
[2019-10-19] MEDS: ENOXAPARIN 120 MG/0.8 ML SYRINGE SUB-Q ×2 (08:36→20:44)
--- NOTE | 2019-10-19 10:43 | PM.IMPN ---
Progress Note: A&P Assessment and Plan (1) Pulmonary embolism: Qualifiers: Acute cor pulmonale presence: unspecified Chronicity: acute Pulmonary embolism type: unspecified Qualified Code(s): I26.99 - Other pulmonary embolism without acute cor pulmonale Code(s): I26.99 - Other pulmonary embolism without acute cor pulmonale Status: Suspected Assessment and Plan: ------imaging studies show probable blood clot. He is now on Lovenox with warfarin. INR 1.2. Warfarin has been increased. He is unable to bridge at home since he has no one to watch his INR. Plan to keep him here in the hospital until his INR is theraputic, minimum of 5 days with bridge. Goal INR will 2-3. He had shortness of breath and chest pain before coming into the hospital which have both improved. He is now walking around the room without any issue. I have called his primary care physician, Dr. pSeedy Vargas who is going to see him outpatient on Monday. (2) DVT (deep venous thrombosis): Qualifiers: DVT location: lower extremity Affected thrombotic vein of extremity: femoral Chronicity: acute Laterality: left Qualified Code(s): I82.412 - Acute embolism and thrombosis of left femoral vein Code(s): I82.409 - Acute embolism and thrombosis of unspecified deep veins of unspecified lower extremity Status: Acute Assessment and Plan: -----extensive Left femoral, popliteal vein, posterior tib and peroneal vein DVT. Likely due to more sedentary life since the [id number] order. No family history or personal history of blood clots. Continue Lovenox and warfarin (3) Elevated troponin: Code(s): R79.89 - Other specified abnormal findings of blood chemistry Status: Acute Assessment and Plan: -----In the setting of bilateral PE. Echo does not show any right heart strain. Cardiology does not suspect ACS. No chest pain reported (4) Hypertension: Qualifiers: Hypertension type: essential hypertension Qualified Code(s): I10 - Essential (primary) hypertension Code(s): I10 - Essential (primary) hypertension Status: Chronic Assessment and Plan: ------last blood pressure 139/79. Continue Norvasc (5) Chronic kidney disease: Code(s): N18.9 - Chronic kidney disease, unspecified Status: Acute Assessment and Plan: -----records from October 2018 shows CKD with the last creatinine 2.23. He likely has chronic kidney disease although the patient is unaware of this. I told him he would benefit from seeing a squad boss and that he should talk to his primary care physician about that. He agreed and is going to follow up with Dr. Rubio or megan. Subjective Date/time seen: 10/19/19 10:43 Interval history: Pt is a 64-year-old male here for pulmonary emboli. Patient was seen today and is doing great. He has no shortness of breath, dyspnea on exertion, chest pain, fevers, chills, abdominal pain, or a lack of appetite. No new complaints. I spoke with thea about current plan. Exam Narrative: Exam Narrative: General: Well developed well nourished patient walking around the room in no acute distress HEENT: normocephalic Neck: supple Neuro: Alert and oriented x4 CV:RRR. Resp:CTA Abd: Soft, non distended. No pain to palpation. Positive bowel sounds Extremities: Left leg mildly more swollen. No erythema or tenderness. Sensation and pulses intact. Objective Data Vital Signs Vital Signs: Vital Signs - 24 hr 10/18/19 14:22 10/18/19 18:00 10/18/19 22:00 Temperature 99.0 F 98.0 F 97.2 F L Pulse Rate 70 62 61 Respiratory Rate 16 16 16 Blood Pressure 139/71 150/79 H 158/79 H Pulse Oximetry 95 99 98 10/19/19 02:00 10/19/19 06:00 10/19/19 08:00 Temperature 97.1 F L 97.1 F L Pulse Rate 67 66 66 Respiratory Rate 18 18 18 Blood Pressure 160/72 H 140/82 Pulse Oximetry 99 97 97 10/19/19 10:00 Temperature 98.
[2019-10-19] MEDS: PANTOPRAZOLE 40 MG TABLET PO (16:52)
[2019-10-19] MEDS: WARFARIN (*PBKC) 2.5 MG TABLET PO (16:53)
[2019-10-19] MEDS: WARFARIN (*PBKC) 5 MG TABLET PO (16:54)
[2019-10-20] VITALS (7 sets, daily range): BP systolic 119–146; BP diastolic 76–107; PULSE 61–79; RESP 17–18; TEMP 36.6–36.8; O2SAT 95–100
[2019-10-20 05:31] LABS: INR 1.2; Prothrombin Time 14.7 Seconds (11.1-14.7)
[2019-10-20] MEDS: AMLODIPINE BESYLATE 5 MG TABLET 10 MG PO (09:22)
[2019-10-20] MEDS: PANTOPRAZOLE 40 MG TABLET PO (09:23)
[2019-10-20] MEDS: ENOXAPARIN 120 MG/0.8 ML SYRINGE SUB-Q ×2 (09:23→20:11)
--- NOTE | 2019-10-20 15:38 | PM.IMPN ---
Progress Note: A&P Assessment and Plan (1) Pulmonary embolism: Qualifiers: Acute cor pulmonale presence: unspecified Chronicity: acute Pulmonary embolism type: unspecified Qualified Code(s): I26.99 - Other pulmonary embolism without acute cor pulmonale Code(s): I26.99 - Other pulmonary embolism without acute cor pulmonale Status: Suspected Assessment and Plan: ------imaging studies show probable blood clot. He is now on Lovenox with warfarin. INR 1.2. Warfarin has been increased again today. He is unable to bridge at home since he has no one to watch his INR. Plan to keep him here in the hospital until his INR is theraputic, minimum of 5 days with bridge. Goal INR will 2-3. He had shortness of breath and chest pain before coming into the hospital which have both improved. He is now walking around the room without any issue. I have called his primary care physician, Dr. Speedy Vargas who is going to see him outpatient on Monday. (2) DVT (deep venous thrombosis): Qualifiers: DVT location: lower extremity Affected thrombotic vein of extremity: femoral Chronicity: acute Laterality: left Qualified Code(s): I82.412 - Acute embolism and thrombosis of left femoral vein Code(s): I82.409 - Acute embolism and thrombosis of unspecified deep veins of unspecified lower extremity Status: Acute Assessment and Plan: -----extensive Left femoral, popliteal vein, posterior tib and peroneal vein DVT. Likely due to more sedentary life since the [id number] order. No family history or personal history of blood clots. Continue Lovenox and warfarin (3) Elevated troponin: Code(s): R79.89 - Other specified abnormal findings of blood chemistry Status: Acute Assessment and Plan: -----In the setting of bilateral PE. Echo does not show any right heart strain. Cardiology does not suspect ACS. No chest pain reported (4) Hypertension: Qualifiers: Hypertension type: essential hypertension Qualified Code(s): I10 - Essential (primary) hypertension Code(s): I10 - Essential (primary) hypertension Status: Chronic Assessment and Plan: ------last blood pressure 146/79. Continue Norvasc (5) Chronic kidney disease: Code(s): N18.9 - Chronic kidney disease, unspecified Status: Acute Assessment and Plan: -----records from October 2018 shows CKD with the last creatinine 2.23. He likely has chronic kidney disease although the patient is unaware of this. I told him he would benefit from seeing a marble coper and that he should talk to his primary care physician about that. He agreed and is going to follow up with Dr. Rubio or megan. Renal u/s shows normal kidney. Will obtain UA. Subjective Date/time seen: 10/20/19 15:38 Interval history: Pt is a 64-year-old male here for pulmonary emboli. Patient was seen today and is doing great. He has no shortness of breath, dyspnea on exertion, chest pain, fevers, chills, abdominal pain, or a lack of appetite. He had a BM today which was normal color. Says his left leg is a little more swollen but he has been up walking more. We talked about elevating it. Exam Narrative: Exam Narrative: General: Well developed well nourished patient walking around the room in no acute distress HEENT: normocephalic Neck: supple Neuro: Alert and oriented x4 CV:RRR. Resp:CTA Abd: Soft, non distended. No pain to palpation. Positive bowel sounds Extremities: Left leg more swollen today. No erythema or tenderness. Sensation and pulses intact. Objective Data Vital Signs Vital Signs: Vital Signs - 24 hr 10/19/19 18:00 10/19/19 21:58 10/20/19 02:00 Temperature 98.3 F 98.1 F 97.8 F Pulse Rate 61 60 79 Respiratory Rate 18 18 18 Blood Pressure 149/84 H 151/76 H 144/107 H Pulse Oximetry 96 95 96 10/20/19 06:00 10/20/19 08:00 10/20/19 10:00 Temperature 98.0 F
[2019-10-20] MEDS: WARFARIN (*PBKC) 10 MG TABLET PO (16:58)
[2019-10-20 19:12] LABS: Add Urine Microscopic? NO; Appearance Urine Clear (Clear); Bilirubin Urine Negative (Negative); Blood Urine Negative (Negative); Color Urine Straw (Yellow); Glucose Urine UA Negative (Negative); Ketones Urine Negative (Negative); Leukocyte Esterase Ur Negative LEU/UL (Negative); Nitrate Urine Negative (Negative); Protein Urine Negative (Negative); Specific Grav Ur 1.008 (1.001-1.035); Urobilinogen Urine Negative mg/dL (<2.0)
[2019-10-21 01:50] VITALS: BP 130/67; PULSE 61; RESP 16; TEMP 36.6; O2SAT 98
[2019-10-21 05:46] LABS: Hematocrit 35.8 % (42.0-52.0); Hemoglobin 11.6 g/dL (14.0-18.0)
[2019-10-21 05:59] LABS: Blood Urea Nitrogen 33 mg/dL (9-20); Calcium 8.9 mg/dL (8.4-10.2); Carbon Dioxide 24 mmol/L (22-30); Chloride 111 mmol/L (98-107); Estimated CRCL calculation 38 ml/min; Estimated Glomerular Filt Rate 26; Glucose 101 mg/dL (75-110); Potassium 4.4 mmol/L (3.4-5.0); Sodium 139 mmol/L (137-145)
[2019-10-21 06:00] VITALS: BP 132/69; PULSE 74; RESP 18; TEMP 36.4; O2SAT 98
[2019-10-21 06:05] LABS: INR 1.3; Prothrombin Time 15.6 Seconds (11.1-14.7)
[2019-10-21] MEDS: AMLODIPINE BESYLATE 5 MG TABLET 10 MG PO (08:55)
[2019-10-21] MEDS: ENOXAPARIN 120 MG/0.8 ML SYRINGE SUB-Q ×2 (08:55→20:09)
[2019-10-21] MEDS: PANTOPRAZOLE 40 MG TABLET PO (08:55)
[2019-10-21 10:00] VITALS: BP 128/90; PULSE 66; RESP 18; TEMP 36.7; O2SAT 99
--- NOTE | 2019-10-21 10:35 | PCNWS ---
Weekly nutritional screen. Patient is tolerating current diet with adequate intake. No weight loss reported. No nutritional needs at this time.
--- NOTE | 2019-10-21 13:10 | PM.IMPN ---
Progress Note: A&P Assessment and Plan (1) Pulmonary embolism: Qualifiers: Acute cor pulmonale presence: unspecified Chronicity: acute Pulmonary embolism type: unspecified Qualified Code(s): I26.99 - Other pulmonary embolism without acute cor pulmonale Code(s): I26.99 - Other pulmonary embolism without acute cor pulmonale Status: Suspected Assessment and Plan: ------imaging studies show probable blood clot. He is now on Lovenox with warfarin. INR 1.3. Warfarin was increased 10/19. If he is still not making progress tomorrow, plan to increase again. He is unable to bridge at home since he has no one to watch his INR (I called Dr. Vargas but since he is a new patient he won't be able to follow it until his first appointment). Plan to keep him here in the hospital until his INR is theraputic. Goal INR will 2-3. He had shortness of breath and chest pain before coming into the hospital which have both improved. He is now walking around the room without any issue. I have called his primary care physician, Dr. Speedy Vargas who is going to see him outpatient on monday (2) DVT (deep venous thrombosis): Qualifiers: DVT location: lower extremity Affected thrombotic vein of extremity: femoral Chronicity: acute Laterality: left Qualified Code(s): I82.412 - Acute embolism and thrombosis of left femoral vein Code(s): I82.409 - Acute embolism and thrombosis of unspecified deep veins of unspecified lower extremity Status: Acute Assessment and Plan: -----extensive Left femoral, popliteal vein, posterior tib and peroneal vein DVT. Likely due to more sedentary life since the [id number] order. No family history or personal history of blood clots. Continue Lovenox and warfarin (3) Elevated troponin: Code(s): R79.89 - Other specified abnormal findings of blood chemistry Status: Acute Assessment and Plan: -----In the setting of bilateral PE. Echo does not show any right heart strain. Cardiology does not suspect ACS. No chest pain reported (4) Hypertension: Qualifiers: Hypertension type: essential hypertension Qualified Code(s): I10 - Essential (primary) hypertension Code(s): I10 - Essential (primary) hypertension Status: Chronic Assessment and Plan: ------last blood pressure 128/90. Continue [facility] (5) Chronic kidney disease: Code(s): N18.9 - Chronic kidney disease, unspecified Status: Acute Assessment and Plan: -----records from October 2018 shows CKD with the last creatinine 2.23. He likely has chronic kidney disease although the patient is unaware of this. I told him he would benefit from seeing a commercial insulator and that he should talk to his primary care physician about that. He agreed and is going to follow up with Dr. Rubio or megan. Renal u/s shows normal kidney. UA neg for infection. Would benefit from urology referral outpatient. Subjective Date/time seen: 10/21/19 13:11 Interval history: Pt is a 64-year-old male here for pulmonary emboli. Patient was seen today and is frustrated with the lack of improvement but overall doing okay. His pcp called and moved his outpt appointment to monday. Pt had a BM which was normal for him. No CP, SOB, fevers, chills, melena, or nausea/vomiting. Exam Narrative: Exam Narrative: General: Well developed well nourished patient walking around the room in no acute distress HEENT: normocephalic Neck: supple Neuro: Alert and oriented x4 CV:RRR. Resp:CTA Abd: Soft, non distended. No pain to palpation. Positive bowel sounds Extremities: Left leg more swollen today. No erythema or tenderness. Sensation and pulses intact. Objective Data Vital Signs Vital Signs: Vital Signs - 24 hr 10/20/19 14:00 10/20/19 18:00 10/20/19 21:54 Temperature 98.0 F 98.2 F 98.1 F Pulse Rate 62 61 63 Respiratory Rate 17 17 18 Blood Pressure
[2019-10-21 14:00] VITALS: BP 147/77; PULSE 83; RESP 16; TEMP 36.7; O2SAT 99
[2019-10-21] MEDS: WARFARIN (*PBKC) 10 MG TABLET PO (16:15)
[2019-10-21 18:00] VITALS: BP 152/78; PULSE 60; RESP 18; TEMP 36.8; O2SAT 98
[2019-10-21 22:00] VITALS: BP 146/81; PULSE 56; RESP 16; TEMP 36.2; O2SAT 98
[2019-10-22 02:00] VITALS: BP 145/71; PULSE 65; RESP 12; TEMP 36.6; O2SAT 98
[2019-10-22 05:08] LABS: Hematocrit 35.5 % (42.0-52.0); Hemoglobin 11.5 g/dL (14.0-18.0)
[2019-10-22 05:20] LABS: INR 1.6; Prothrombin Time 18.4 Seconds (11.1-14.7)
[2019-10-22 06:00] VITALS: BP 144/82; PULSE 91; RESP 18; TEMP 36.5; O2SAT 97
[2019-10-22] MEDS: PANTOPRAZOLE 40 MG TABLET PO (08:09)
[2019-10-22] MEDS: ENOXAPARIN 120 MG/0.8 ML SYRINGE SUB-Q ×2 (08:09→20:17)
[2019-10-22] MEDS: AMLODIPINE BESYLATE 5 MG TABLET 10 MG PO (08:09)
[2019-10-22 10:00] VITALS: BP 139/86; PULSE 62; RESP 16; TEMP 36.2; O2SAT 98
--- NOTE | 2019-10-22 10:37 | PM.IMPN ---
Progress Note: A&P Assessment and Plan (1) Pulmonary embolism: Qualifiers: Acute cor pulmonale presence: unspecified Chronicity: acute Pulmonary embolism type: unspecified Qualified Code(s): I26.99 - Other pulmonary embolism without acute cor pulmonale Code(s): I26.99 - Other pulmonary embolism without acute cor pulmonale Status: Suspected Assessment and Plan: VQ scan shows NADIRA perfusion deficits consistent with pulmonary emboli. He remains on Lovenox with warfarin today. INR improved to 1.6. Warfarin was increased 10/19. He is unable to do Lovenox bridge at home. Patient's new PCP - Dr Vargas - was contacted by previous provider and won't be able to follow his INR until patient is seen for first appointment 10/28. Plan to discharge once INR is therapeutic - goal INR 2 to 3. (2) DVT (deep venous thrombosis): Qualifiers: Affected thrombotic vein of extremity: femoral Chronicity: acute DVT location: lower extremity Laterality: left Qualified Code(s): I82.412 - Acute embolism and thrombosis of left femoral vein Code(s): I82.409 - Acute embolism and thrombosis of unspecified deep veins of unspecified lower extremity Status: Acute Assessment and Plan: Extensive Left femoral, popliteal vein, posterior tib and peroneal vein DVT. Continue Lovenox and warfarin. (3) Elevated troponin: Code(s): R79.89 - Other specified abnormal findings of blood chemistry Status: Acute Assessment and Plan: In the setting of bilateral PE. No chest pain today. Echo does not show any right heart strain. Cardiology evaluated the patient. No ACS suspected. (4) Hypertension: Qualifiers: Hypertension type: essential hypertension Qualified Code(s): I10 - Essential (primary) hypertension Code(s): I10 - Essential (primary) hypertension Status: Chronic Assessment and Plan: Last blood pressure 139/86. Continue Norvasc. Home losartan held due to renal function. Monitor BP and adjust treatment if needed. (5) Chronic kidney disease: Code(s): N18.9 - Chronic kidney disease, unspecified Status: Suspected Assessment and Plan: Records from October 2018 demonstrate a Cr 2.2. Suspect CKD although patient notes he was unaware of this. Recommend nephrology follow up as an outpatient which he has agreed to. Renal US shows normal kindeys. UA demonstrates no infection. Subjective Date/time seen: 10/22/19 0945 Interval history: Mr. Linton is a 64yo M admitted for pulmonary emboli. He is feeling well and offers no complaints other than left leg swelling. He denies chest pain or shortness of breath. Tolerated breakfast without nausea or vomiting. Review of Systems Review of Systems: Narrative: Twelve systems were reviewed with pertinent positives and negatives as per HPI. Exam Narrative: Exam Narrative: General: Male resting sitting on edge of bed in no acute distress. HEENT: Normocephalic, EOMI, oral mucosa moist. Cardiovascular: Rate and rhythm are regular. Respiratory: Lungs clear to auscultation. Respirations even and nonlabored. Tolerating room air. Abdomen: Soft, non-tender, non-distended, bowel sounds present. Extremities: Peripheral pulses intact. LLE swelling from ankle to mid ibrahim. Neuro: No focal neurological deficits. Speech is clear. Objective Data Vital Signs Vital Signs: Last Vital Signs Temp 97.2 F L 10/22/19 10:00 Pulse 62 10/22/19 10:00 Resp 16 10/22/19 10:00 BP 139/86 10/22/19 10:00 Pulse Ox 98 10/22/19 10:00 Intake/Output Intake/Output: Intake & Output 10/19/19 10/20/19 10/21/19 10/22/19 23:59 23:59 23:59 23:59 Intake Total 2520 2970 2600 980 Output Total 650 Balance 1870 2970 2600 980 Meds/Results Medications: Active Medication
[2019-10-22 14:00] VITALS: BP 143/76; PULSE 60; RESP 16; TEMP 36.3; O2SAT 98
[2019-10-22] MEDS: WARFARIN (*PBKC) 10 MG TABLET PO (16:08)
[2019-10-22 18:00] VITALS: BP 144/60; PULSE 60; RESP 16; TEMP 36.4; O2SAT 98
[2019-10-22 22:00] VITALS: BP 144/77; PULSE 68; RESP 18; TEMP 36.3; O2SAT 96
[2019-10-23 05:29] VITALS: BP 124/70; PULSE 57; RESP 16; TEMP 36.2; O2SAT 98
[2019-10-23 05:36] LABS: INR 1.8; Prothrombin Time 20.1 Seconds (11.1-14.7)
[2019-10-23 05:51] LABS: Blood Urea Nitrogen 30 mg/dL (9-20); Calcium 8.7 mg/dL (8.4-10.2); Carbon Dioxide 23 mmol/L (22-30); Chloride 109 mmol/L (98-107); Estimated CRCL calculation 38 ml/min; Estimated Glomerular Filt Rate 26; Glucose 95 mg/dL (75-110); Phosphorus 3.7 mg/dL (2.5-4.5); Potassium 4.9 mmol/L (3.4-5.0); Sodium 138 mmol/L (137-145)
[2019-10-23] MEDS: ENOXAPARIN 120 MG/0.8 ML SYRINGE SUB-Q ×2 (08:54→20:55)
[2019-10-23] MEDS: AMLODIPINE BESYLATE 5 MG TABLET 10 MG PO (08:54)
[2019-10-23] MEDS: PANTOPRAZOLE 40 MG TABLET PO (08:54)
--- NOTE | 2019-10-23 10:33 | PM.IMPN ---
Progress Note: A&P Assessment and Plan (1) Pulmonary embolism: Qualifiers: Acute cor pulmonale presence: unspecified Chronicity: acute Pulmonary embolism type: unspecified Qualified Code(s): I26.99 - Other pulmonary embolism without acute cor pulmonale Code(s): I26.99 - Other pulmonary embolism without acute cor pulmonale Status: Suspected Assessment and Plan: VQ scan shows NADIRA perfusion deficits consistent with pulmonary emboli. He remains on Lovenox with warfarin today. INR improved to 1.8. Warfarin was increased 10/19. He is unable to do Lovenox bridge at home. Patient's new PCP - Dr Vargas - was contacted by previous provider and won't be able to follow his INR until patient is seen for first appointment 10/28. Plan to discharge once INR is therapeutic - goal INR 2 to 3. Hopeful for possible discharge tomorrow. (2) DVT (deep venous thrombosis): Qualifiers: Affected thrombotic vein of extremity: femoral Chronicity: acute DVT location: lower extremity Laterality: left Qualified Code(s): I82.412 - Acute embolism and thrombosis of left femoral vein Code(s): I82.409 - Acute embolism and thrombosis of unspecified deep veins of unspecified lower extremity Status: Acute Assessment and Plan: Extensive Left femoral, popliteal vein, posterior tib and peroneal vein DVT. Continue Lovenox and warfarin. (3) Elevated troponin: Code(s): R79.89 - Other specified abnormal findings of blood chemistry Status: Acute Assessment and Plan: In the setting of bilateral PE. No chest pain today. Echo does not show any right heart strain. Cardiology evaluated the patient. No ACS suspected. (4) Hypertension: Qualifiers: Hypertension type: essential hypertension Qualified Code(s): I10 - Essential (primary) hypertension Code(s): I10 - Essential (primary) hypertension Status: Chronic Assessment and Plan: Last blood pressure 146/80. Continue Norvasc. Home losartan held due to renal function. Monitor BP and adjust treatment if needed. (5) Chronic kidney disease: Code(s): N18.9 - Chronic kidney disease, unspecified Status: Suspected Assessment and Plan: Records from October 2018 demonstrate a Cr 2.2. Suspect CKD although patient notes he was unaware of this. Recommend nephrology follow up as an outpatient which he has agreed to. Renal US shows normal kindeys. UA demonstrates no infection. Subjective Date/time seen: 10/23/19 10:15 Interval history: Mr. Linton is a 64yo M admitted for pulmonary emboli and DVT. He is feeling well and offers no complaints today. He denies chest pain or shortness of breath. Tolerated breakfast without nausea or vomiting. Exam Narrative: Exam Narrative: General: Male resting sitting on edge of bed in no acute distress. HEENT: Normocephalic, EOMI, oral mucosa moist. Cardiovascular: Rate and rhythm are regular. Respiratory: Lungs clear to auscultation. Respirations even and nonlabored. Tolerating room air. Abdomen: Soft, non-tender, non-distended, bowel sounds present. Extremities: Peripheral pulses intact. LLE swelling from ankle to mid ibrahim. Neuro: No focal neurological deficits. Speech is clear. Objective Data Vital Signs Vital Signs: Last Vital Signs Temp 98.1 F 10/23/19 14:00 Pulse 57 L 10/23/19 14:00 Resp 18 10/23/19 14:00 BP 146/80 H 10/23/19 14:00 Pulse Ox 98 10/23/19 14:00 Intake/Output Intake/Output: Intake & Output 10/20/19 10/21/19 10/22/19 10/23/19 23:59 23:59 23:59 23:59 Intake Total 2970 2600 2650 1570 Balance 2970 2600 2650 1570 Meds/Results Medications: Active Medications Generic Name Dose Route Start Last Admin Trade Name Freq PRN Reason Stop Dose Admin Acetaminophen 1,000 mg
[2019-10-23 14:00] VITALS: BP 146/80; PULSE 57; RESP 18; TEMP 36.7; O2SAT 98
[2019-10-23] MEDS: WARFARIN (*PBKC) 10 MG TABLET PO (16:23)
[2019-10-23 21:27] VITALS: BP 139/67; PULSE 68; RESP 16; TEMP 36.7; O2SAT 96
[2019-10-24 05:57] VITALS: BP 143/76; PULSE 55; RESP 16; TEMP 36.6; O2SAT 99
[2019-10-24 06:06] LABS: Hematocrit 35.6 % (42.0-52.0); Hemoglobin 11.4 g/dL (14.0-18.0)
--- NOTE | 2019-10-24 08:30 | PC.NURSE ---
Patient states he was told by JENNY that he didn't need to take his Lovenox injection today because he is being discharged. Discussed with Liset ALVARADO and orders received to hold this a.m.'s dose of Lovenox.
[2019-10-24] MEDS: PANTOPRAZOLE 40 MG TABLET PO (08:50)
[2019-10-24] MEDS: AMLODIPINE BESYLATE 5 MG TABLET 10 MG PO (08:50)
--- NOTE | 2019-10-24 08:50 | PM.DS ---
DS: Admitting Diagnosis Admitting Diagnosis Admitting Diagnosis: Other pulmonary embolism without acute cor pulmonale DS: Discharge Diagnosis Discharge Diagnosis (1) Pulmonary embolism: Qualifiers: Acute cor pulmonale presence: unspecified Chronicity: acute Pulmonary embolism type: unspecified Qualified Code(s): I26.99 - Other pulmonary embolism without acute cor pulmonale Code(s): I26.99 - Other pulmonary embolism without acute cor pulmonale Status: Suspected Assessment and Plan: Date of Service 10/24/19 Mr. Linton is a 64yo M with history of hypertension and chronic kidney disease who presented to the ED for evaluation of shortness of breath and chest tightness that began the day prior to arrival when mowing the lawn. Chest XR was clear. Due to elevated creatinine, VQ scan was performed instead of CTA chest which demonstrated bilateral perfusion deficits in the upper and lower lobes concerning for bilateral pulmonary emboli. Lower extremity venous dopplers revealed extensive DVT in his left leg detailed below. Troponins were elevated on arrival and felt to be secondary to PE. He was evaluated by cardiology, Dr Song, and no acute coronary syndrome was suspected. He was initiated on heparin drip. Case management checked pricing for Eliquis for discharge planning. Patient opted for Warfarin instead for cost purposes. He was initiated on warfarin with Lovenox bridge on 10/14 while daily INR was monitored. Since he is in between PCPs, patient was not able to discharge home with a Lovenox bridge as there was no provider to follow daily INR monitoring. His new PCP was contacted by the previous provider and an appointment was made for 10/28. He was kept in the hospital until his INR was therapeutic which unfortunately took 10 days. Creatinine remained elevated in mid 2s through his stay and it is felt that he has a component of chronic kidney disease. Recommend establishing with nephrology as an outpatient at some point and he was given Dr Rubio and Dr Rawls's information. Blood pressures were stable on his home Norvasc. His home losartan was held due to his renal function and he was instructed to hold losartan until follow up with PCP. He had been taking diclofenac for plantar fasciitis, also recommended holding due to renal function and now bleeding risk with new start of warfarin. He was feeling well and his shortness of breath had resolved. He was tolerating room air and hemodynamically stable through this admission. He was discharged home in stable condition 10/24/19 with plans for repeat INR over the weekend prior to his first appointment with his new PCP in a few days. Consultations: -- Cardiology - Dr Vj Song VQ scan shows NADIRA perfusion deficits consistent with pulmonary emboli. 10mg warfarin daily. Maintained on Lovenox bridge up until time of discharge. INR 2.0 on day of discharge. He is unable to do Lovenox bridge at home. Patient's new PCP - Dr Vargas - was contacted by previous provider and won't be able to follow his INR until patient is seen for first appointment 10/28. (2) DVT (deep venous thrombosis): Qualifiers: DVT location: lower extremity Affected thrombotic vein of extremity: femoral Chronicity: acute Laterality: left Qualified Code(s): I82.412 - Acute embolism and thrombosis of left femoral vein Code(s): I82.409 - Acute embolism and thrombosis of unspecified deep veins of unspecified lower extremity Status: Acute Assessment and Plan: Extensive Left femoral, popliteal vein, posterior tib and peroneal vein DVT. See above. (3) Elevated troponin: Code(s): R79.89 - Other specified abnormal findings of blood chemistry Status: Acute Assessment and Plan: In the setting of bilateral PE. No chest pain today. Echo does
== END 2019-10-24 11:25 | disposition home or self-care (01) | DRG 176 ==
LOC: ANHED 22:48 → ANHIMU 23:36 → ANH2MED 10-16 07:34 → ANHIMU 10-29 08:47
PROVIDERS: Nurse Practitioner; Physician Assistant; Admitting Provider Family Medicine; Emergency Provider Emergency Medicine; Visit Provider Physician Assistant
DX: I26.99 Other pulmonary embolism without acute cor pulmonale (principal); I82.412 Acute embolism and thrombosis of left femoral vein; I12.9 Hypertensive chronic kidney disease with stage 1 through stage 4 chronic kidney disease, or unspecified chronic kidney disease; N18.9 Chronic kidney disease, unspecified; R79.89 Other specified abnormal findings of blood chemistry; D64.9 Anemia, unspecified; Z87.891 Personal history of nicotine dependence; Z79.899 Other long term (current) drug therapy
CPT/HCPCS: 36415; 71046; 76775; 78580; 80048; 80053; 81003; 83735; 83880; 84100; 84443; 84484; 85014; 85018; 85025; 85027; 85380; 85610; 85730; 93005; 93970; 96365; 99291; A9270; A9540; C8929; J1644; J1650; J7030; Q9957

== ENCOUNTER 2019-10-26 11:59 | Outpatient (RCR) | payer BC, SELFPAY ==
[2019-10-26 12:29] LABS: INR 2.4; Prothrombin Time 25.6 Seconds (11.1-14.7)
== END 2020-01-24 23:59 | disposition home or self-care (01) ==
LOC: ANHLAB 11:59
PROVIDERS: PCP Family Medicine; Visit Provider Physician Assistant
DX: Z51.81 Encounter for therapeutic drug level monitoring (principal); Z79.01 Long term (current) use of anticoagulants
CPT/HCPCS: 36415; 85610

== ENCOUNTER 2019-10-29 10:43 | Outpatient (CLI) | payer BC, SELFPAY ==
[2019-10-29 11:17] LABS: INR 4.3; Prothrombin Time 40.7 Seconds (11.1-14.7)
== END 2019-10-29 10:44 | disposition home or self-care (01) ==
PROVIDERS: PCP Family Medicine; Visit Provider Physician Assistant
DX: Z79.01 Long term (current) use of anticoagulants (principal)
CPT/HCPCS: 36415; 85610

== ENCOUNTER 2020-11-08 19:58 | Emergency (ER) | payer BC, SELFPAY ==
--- NOTE | ~2020-11-08 | CT_ITS ---
EXAMINATION: CT abdomen pelvis wo con DATE: 11/08/2020 20:53 INDICATION: Right flank pain TECHNIQUE: Computed tomography (CT) of the abdomen and pelvis was performed without intravenous contr ast. Automated exposure control and iterative reconstruction technique were employed. Exam dose: 851 .60 mGy-cm total exam DLP. COMPARISON: None. FINDINGS: The lung bases are clear. Heart size is normal. No pericardial or pleural effusion. No hepatic, splenic, pancreatic, adrenal or renal space occupying mass lesion. There are multiple gallstones. There is mild thickening of the gallbladder wall. No pericholecystic fluid or fat stranding. There is a 3 mm right ureteral calculus with moderate right hydroureteronephrosis with perinephric st randing. Small sliding hiatal hernia. Status post appendectomy. There is colonic diverticulosis; no evidence of diverticulitis. No bowel obstruction or free air. There is prostate enlargement and calcification. There is diffuse thickening of the urinary bladder wall. Small bilateral fat containing inguinal hernias. Degenerative disc disease at L5-S1. IMPRESSION: 3 mm right ureteral calculus with moderate right hydroureteronephrosis Small sliding hiatal hernia Status post appendectomy Colonic diverticulosis Prostate enlargement and calcification; urinary bladder wall thickening likely due to outlet obstruct ion Reviewed, dictated and finalized at [facility]. Reviewed, dictated and finalized at location A. IMPRESSION: 3 mm right ureteral calculus with moderate right hydroureteronephr osis Small sliding hiatal hernia Status post appendectomy Colonic diverticulosis Prostate enlargement and calcification; urinary bladder wall thickening likely due to outlet obstruction
--- NOTE | ~2020-11-08 | XR_ITS ---
XR abdomen/kub 1V DATE: 11/08/2020 21:02 INDICATION: Right flank pain TECHNIQUE: AP projection, 2 views COMPARISON: 11/08/[address] abdomen pelvis FINDINGS: The small right ureteral calculus noted at approximately L5-S1 level on 11/08/2020 CT abdomen pelvis examination is not definitively localized on the current KUB, possibly due to superimposed sk eletal structures. The psoas shadows are intact. No visceromegaly is evident. The bowel gas pattern is unremarkable, wit hout evidence of obstruction. IMPRESSION: Nonspecific abdomen; small right ureteral calculus at approximately L5-S1 level on 11/09/19 CT abdomen pelvis examination is not definitively localized on the examination, possibly due to delgado perimposed skeletal structures Reviewed, dictated and finalized at [facility]. Reviewed, dictated and finalized at location [facility]. IMPRESSION: Nonspecific abdomen; small right ureteral calculus at approximately L5-S1 level on 11/08/2020 CT abdomen pelvis examination is not definitively loca lized on the examination, possibly due to superimposed skeletal structures
[2020-11-08 20:10] VITALS: BP 149/119; PULSE 71; RESP 16; TEMP 36.7; O2SAT 96
[2020-11-08 20:24] LABS: Basophils Absolute Auto 0.1 K/mm3 (0.0-0.1); Basophils Percent Auto 0.6 % (0.2-1.2); Eosinophils Absolute Auto 0.5 K/mm3 (0-0.3); Eosinophils Percent Auto 4.2 % (0-4.4); Hematocrit 43.4 % (42.0-52.0); Hemoglobin 13.9 g/dL (14.0-18.0); Immature Granulocyte Absolute 0.05 K/mm3 (0.00-0.031); Immature Granulocyte Percent A 0.4 % (0-0.5); Lymphocytes Absolute Auto 1.59 K/mm3 (0.9-3.2); Lymphocytes Percent Auto 13.3 % (18.3-44.2); Mean Corpuscular Hemoglobin 28.8 pg (26-34); Mean Platelet Volume 10.1 fl (7.4-10.4); Monocytes Absolute Auto 0.9 K/mm3 (0.1-0.6); Monocytes Percent Auto 7.4 % (2.6-8.5); Neutrophils Absolute Auto 8.9 K/mm3 (1.3-6.7); Neutrophils Percent Auto 74.1 % (45.5-73.1); Platelet Count Result 178 k/mm3 (150-375); Red Blood Count 4.82 M/mm3 (4.6-6.20); Red Cell Distribution Width 14.3 % (11.5-14.5)
--- NOTE | 2020-11-08 20:43 | ED.GENADULT ---
HPI - General Adult General Chief complaint: Urogenital-Male Stated complaint: R flank pain Time Seen by Provider: 11/08/20 20:38 Source: RN notes reviewed History of Present Illness HPI narrative: Patient presents to emergency department from home for right-sided flank pain. Patient states pain began approximately 2 PM today progressively worsened pain is in the right lower flank and radiates to the right lower abdomen described as sharp and stabbing states it was associate with a low-grade temperature of 100 degrees at home patient took 2 Tylenol approximately 2 hours ago patient does note intermittent nausea he denies any chest pain, shortness of breath vomiting diarrhea or any other symptoms Related Data Home Medications Medication Instructions Recorded Confirmed amlodipine 10 mg PO DAILY 10/13/19 10/14/19 Allergies Allergy/AdvReac Type Severity Reaction Status Date / Time No Known Allergies Allergy Verified 05/26/20 10:10 Review of Systems Review of Systems: Narrative: Gen.: Reports low-grade fever ENT: Denies congestion Respiratory: Denies shortness of breath or cough CV: Denies chest pain or palpitations GI: See HPI denies burning, urgency, frequency or hematuria Musculoskeletal: Denies back pain or muscle pain Neuro: Denies numbness, tingling, weakness or focal weakness Skin: Denies rash Except as documented, all other systems reviewed and negative [facility] Past Medical History Medical History (Updated 11/08/20 @ 22:57 by Tevin Daniels DO) Hypertension Hypogonadism Surgical History Surgical History S/P appendectomy Family History Family History Mother Renal failure Diabetes mellitus Father COPD (chronic obstructive pulmonary disease) Social History Social History Social History: The patient is and lives with a significant other her name is thea hernández. He desires to have her is his durable power deputy attorney general for healthcare. The patient has 6 children. Patient desires to be a full code. The patient quit smoking approximately 1 year ago. The patient smoked for about a total of 8 years. He has a pack a cigarettes a day. 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 He says that he drinks 2 or 3 times a week. 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 Smoking packs per day: 1.5 Smoking cigarettes per day: 30.0 Smoking status: Former smoker Tobacco type: cigarettes Second hand tobacco smoke exposure: No Alcohol intake: current Drinks per week: 2 Substance use: never Additional occupation/education comments: Own to [employer] Gender identity (if verbalized by the patient): Male Spiritual care concerns: No Exam Narrative: Exam Narrative: APPEARANCE: No acute distress, nontoxic, resting in bed HEENT: Normocephalic, atraumatic, OMM RESPIRATORY: No respiratory distress, clear to auscultation bilaterally with no rhonchi wheezing or rales CARDIOVASCULAR: RRR s murmur ABDOMINAL: Soft nondistended, tender to palpation right lower quadrant no tenderness right upper quadrant and left lower quadrant left lower quadrant no rebound or guarding MUSCULOSKELETAl: Moves all extremities. No clubbing, cyanosis or edema. NEURO: Awake and alert. Following commands, speech normal, no focal deficits SKIN:: Warm, dry. Normal Color PSYCHIATRIC: Normal affect/mood Course Course Emergency Course: Reviewed old records. Current creatinine is consistent with prior Discussed with patient results of workup and diagnosis. Discussed need for follow-up with primary care, proper use of medication, and reasons to return to the emergency department. Patient understands and agrees to current treatment plan Vital Signs Vital signs: Vital Signs Temperature 98.0 F
[2020-11-08 20:52] LABS: Add Urine Microscopic? YES; Appearance Urine Cloudy (Clear); Bacteria Urine Trace /hpf; Bilirubin Urine Negative (Negative); Blood Urine 3+ (Negative); Color Urine Yellow (Yellow); Glucose Urine UA Negative (Negative); Ketones Urine Negative (Negative); Leukocyte Esterase Ur Negative LEU/UL (Negative); Nitrate Urine Negative (Negative); Protein Urine 2+ mg/dL (Negative); RBC Urine >75 /hpf (0-2); Specific Grav Ur 1.012 (1.001-1.035); Squamous Epithelial Cell Urine Occasional /hpf (Few); Urobilinogen Urine Negative mg/dL (<2.0)
[2020-11-08 20:53] LABS: Anion Gap 10 mmol/L (8-16); Blood Urea Nitrogen 40 mg/dL (9-20); Calcium 9.5 mg/dL (8.4-10.2); Carbon Dioxide 23 mmol/L (22-30); Chloride 107 mmol/L (98-107); Estimated CRCL calculation 34 ml/min; Estimated Glomerular Filt Rate 23; Glucose 127 mg/dL (75-110); Potassium 4.3 mmol/L (3.4-5.0); Sodium 140 mmol/L (137-145)
[2020-11-08] MEDS: MORPHINE SULFATE (*CRX) 4 MG/ML INJ IV PUSH (21:15)
[2020-11-08] MEDS: ONDANSETRON INJ 4 MG/2 ML VIAL IV PUSH (21:16)
[2020-11-08] MEDS: SODIUM CHLORIDE 0.9% IV 1,000 ML 999 ML IV CONT (21:17)
[2020-11-08] MEDS: TAMSULOSIN HCL 0.4 MG CAPSULE PO (21:25)
[2020-11-08] MEDS: PROMETHAZINE HCL 25 MG/ML AMPUL 12.5 MG IV PUSH (22:30)
[2020-11-08 23:04] VITALS: BP 139/84; PULSE 89; RESP 18; O2SAT 97
== END 2020-11-08 23:16 | disposition home or self-care (01) ==
PROVIDERS: Emergency Provider Emergency Medicine; PCP Family Medicine
DX: N13.2 Hydronephrosis with renal and ureteral calculous obstruction (principal); I10 Essential (primary) hypertension; Z87.891 Personal history of nicotine dependence; K44.9 Diaphragmatic hernia without obstruction or gangrene; K57.90 Diverticulosis of intestine, part unspecified, without perforation or abscess without bleeding
CPT/HCPCS: 36415; 74018; 74176; 80048; 81001; 85025; 96361; 96374; 96375; 99284; A9270; J2270; J2405; J2550; J7030

== ENCOUNTER 2021-06-21 13:59 | Outpatient (CLI) | payer BC, SELFPAY ==
--- NOTE | ~2021-06-21 | CT_ITS ---
EXAMINATION: CT lung screening DATE: 06/21/2021 14:14 INDICATION: Z87.891 - Personal history of nicotine dependence TECHNIQUE: Computed tomography (CT) of the chest was performed without intravenous contrast. Addition al 3D reconstructions utilizing coronal maximum intensity projection (MIP) were performed. Automated exposure control and iterative reconstruction technique were employed. The dose-length product was 50 4.27 mGy-cm. COMPARISON: Chest radiograph dated 10/13/2019 FINDINGS: Calcified right upper lobe nodule a few small splenic calcifications consistent with old granulomatou s disease. Couple smaller noncalcified nodules measuring 3 mm and 2 mm in the left lower lobe mild di scoid atelectasis at the lingula. No pulmonary edema other pulmonary infiltrates or pleural effusion. Heart size is normal. Mild atherosclerotic coronary artery calcific lesion. There is also some aorti c valve calcific location. Thoracic aorta is normal in caliber. No pathologically enlarged thoracic l ymphadenopathy. Suggestion of a few calcified gallstones in the dependent aspect of the otherwise nor mal appearing gallbladder. Moderate thoracic spondylosis with minimal chronic anterior wedging at T7 and T9. IMPRESSION: 1. Lung-RADS category 2: Benign appearance or behavior. Continue annual screening with noncontrast lo w-dose chest CT in 12 months. 2. Cholelithiasis. Reviewed, dictated and finalized at location A. NA HANDLER IMPRESSION: 1. Lung-RADS category 2: Benign appearance or behavior. Continue annual screeni ng with noncontrast low-dose chest CT in 12 months. 2. Cholelithiasis.
== END 2021-06-21 14:00 | disposition home or self-care (01) ==
LOC: ANHIMG 14:02
PROVIDERS: PCP Family Medicine; Visit Provider Family Medicine
DX: Z87.891 Personal history of nicotine dependence (principal); K80.20 Calculus of gallbladder without cholecystitis without obstruction
CPT/HCPCS: 71271

== ENCOUNTER 2022-02-25 01:50 | Outpatient (CLI) | payer MEDICARE, OTHER, SELFPAY ==
[2022-02-17 12:17] VITALS: BMI 38.5
--- NOTE | 2022-02-17 12:18 | PC.NURSE ---
Pre Radiology instructions Report to the Outpatient Waiting Room, entrance under the green pavilion located off [facility], at time _1100_ on date _02-25-2022_. Procedure Time: _1pm_. YOU MAY BE MONITORED AT HOSPITAL FOR UP TO 4 HOURS AFTER YOUR PROCEDURE. One visitor will be allowed to accompany the patient into the hospital. The visitor will be instructed to remain with patient at all times or leave the building due to restrictions. We will allow the visitor to come back to the postoperative area when patient is ready. NO children visitors allowed at this time. You and your visitor will be asked to self-screen and do not enter if you have any COVID symptoms. A mask is required within the hospital. Patients are to have no food or drink 6 hours prior to procedure time Driving will be restricted after the procedure, you must have a person to drive you home. Labs will be drawn in preop area and once reviewed, you will be taken to radiology area for procedure. When the procedure is completed, you will be taken to outpatient where you will be monitored for several hours. You may have one visitor in this area. Other than holding anti-coagulants, patient may take other medication(s) as scheduled. Prior to your appointment date patients are instructed to hold anti-coagulants after discussing with ordering provider to stop. If unable to discontinue anti-coagulants please notify radiologist. No aspirin or warfarin (Coumadin) for 7 days prior to the procedure. No clopidogrel (Plavix), ticagrelor (Brilinta), prasugrel (Effient) or dabigatran (Pradaxa) for 5 days prior to the procedure. No rivaroxaban (Xarelto), apixaban (Eliquis), dipyridamole (Aggrenox or Persantine) or cilostazol (Pletal) for 2 days prior to the procedure. Medications to discontinue per physician: Eliquis Date to take last dose: __02-23-2022 but patient says his own physician asked him to stop it a week before proceedure. Please leave all valuables, including medications, at home the day of procedure. The hospital will not accept responsibility for valuables. Wear comfortable, loose fitting clothing. Follow any additional instructions given to you from ordering provider. Telephone instructions given to _Patient____and asked if any additional questions and then verbalized understanding. Patient advised to call scheduling provider office or registration scheduling [phone] if any additional questions.
[2022-02-25] VITALS (11 sets, daily range): BP systolic 115–152; BP diastolic 77–90; PULSE 56–78; RESP 16; TEMP 36.6; O2SAT 94–99
--- NOTE | ~2022-02-25 | US_ITS ---
EXAMINATION: US biopsy renal DATE: 02/25/2022 13:49 INDICATION: Chronic kidney disease stage IV. Hypertensive renal disease. TECHNIQUE: The procedure including the risks, benefits, and alternatives was discussed with the patie nt. Risks discussed included bleeding and infection. The patient understood the risks and agreed to p roceed. A timeout was performed to verify the patient's name, date of , and procedure to be p erformed. The skin overlying the left kidney was prepped and draped in usual sterile fashion. Anest hetic was administered with 1% lidocaine subcutaneously. An 18 gauge core biopsy needle was then use d to obtain 3 core biopsy specimens under continuous sonographic guidance. The entry site was cleaned and dressed. There were no immediate complications. FINDINGS: Ultrasound images demonstrate the needle in the kidney. IMPRESSION: 1. Ultrasound-guided random left kidney core needle biopsy. Reviewed, dictated and finalized at location A.
[2022-02-25] MEDS: SODIUM CHLORIDE 0.9% IV 1,000 ML 30 ML IV CONT (12:06)
[2022-02-25 12:07] LABS: Mean Platelet Volume 10.1 fl (7.4-10.4); Platelet Count Result 206 k/mm3 (150-375)
[2022-02-25 12:17] LABS: Prothrombin Time 13.2 Seconds (11.1-14.7)
== END 2022-02-25 17:33 | disposition home or self-care (01) ==
PROVIDERS: PCP Family Medicine; Referring Provider Internal Medicine Nephrology; Visit Provider Radiology Diagnostic Radiology
PROC: (CPT 76942; principal; 2022-02-25 13:00)
DX: I12.9 Hypertensive chronic kidney disease with stage 1 through stage 4 chronic kidney disease, or unspecified chronic kidney disease (principal); N18.4 Chronic kidney disease, stage 4 (severe)
CPT/HCPCS: 36415; 50200; 76942; 85049; 85610; 88300; 88305; 88313; 88329; 88346; 88348; 88350; J7030

== ENCOUNTER 2023-04-05 12:18 | Outpatient (CLI) | payer MEDICARE, OTHER, SELFPAY ==
--- NOTE | ~2023-04-05 | CT_ITS ---
EXAMINATION: CT lung screening DATE: 04/05/2023 12:40 INDICATION: Z87.891 - Personal history of nicotine dependence TECHNIQUE: Computed tomography (CT) of the chest was performed without intravenous contrast. Addition al 3D reconstructions utilizing coronal maximum intensity projection (MIP) were performed. Automated exposure control and iterative reconstruction technique were employed. The dose-length product was 52 0.12 mGy-cm. COMPARISON: 06/21/2021 FINDINGS: Calcified right upper lobe nodule consistent with old granulomatous disease. No interval change in a couple small left lower lobe nodules measuring 2 mm on series 4, image 105 and 3 mm on image 88. No n ew or enlarging pulmonary nodules. Mild discoid atelectasis at the lingula. No pneumonia, pulmonary e long or pleural effusion. Heart size is normal. Small amount of atherosclerotic coronary artery calci fic location and aortic valve calcific lesion. No pericardial effusion. Thoracic aorta is normal in c aliber. No pathologically enlarged thoracic lymphadenopathy. There are few diverticula along the prox imal descending colon without adjacent comparison to suggest diverticulitis. Moderate thoracic spondy losis with minimal chronic anterior wedging at T7-T9. IMPRESSION: 1. Lung-RADS category 2: Benign appearance or behavior. Continue annual screening with noncontrast lo w-dose chest CT in 12 months. Reviewed, dictated and finalized at location A. IMPRESSION: 1. Lung-RADS category 2: Benign appearance or behavior. Continue annual screeni ng with noncontrast low-dose chest CT in 12 months.
== END 2023-04-05 12:19 | disposition home or self-care (01) ==
PROVIDERS: PCP Family Medicine; Visit Provider Nurse Practitioner Adult Health
DX: Z12.2 Encounter for screening for malignant neoplasm of respiratory organs (principal); Z87.891 Personal history of nicotine dependence
CPT/HCPCS: 71271

== ENCOUNTER 2023-04-24 10:22 | Outpatient (CLI) | payer MEDICARE, OTHER, SELFPAY ==
--- NOTE | ~2023-04-24 | XR_ITS ---
XR knee LT 3V 04/24/2023 10:50 Indication: Left knee pain Procedure: 3 views left knee Comparison: No prior studies for comparison. Findings: Mild tricompartment osteoarthritis. Small joint effusion. No fracture or traumatic malalign ment. No significant soft tissue abnormality. No foreign bodies. 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 2: Small joint effusion. Reviewed, dictated and finalized at location B. 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 2: Small joint effusion.
== END 2023-04-24 10:23 | disposition home or self-care (01) ==
PROVIDERS: PCP Family Medicine; Visit Provider Family Medicine
DX: M17.12 Unilateral primary osteoarthritis, left knee (principal); M25.462 Effusion, left knee; M25.569 Pain in unspecified knee
CPT/HCPCS: 73562

== ENCOUNTER 2023-06-19 14:41 | Outpatient (CLI) | payer MEDICARE, OTHER, SELFPAY ==
--- NOTE | ~2023-06-19 | XR_ITS ---
XR knee RT min 4V DATE: 06/19/2023 14:55 INDICATION: Chronic lateral right knee pain. No known injury. TECHNIQUE: [place] and standing AP, PA and lateral views COMPARISON: None FINDINGS: There is prominent suprapatellar knee joint effusion. There is narrowing of the lateral aspect of the patellofemoral joint with lateral and lesser medial p eriarticular spurring. There is severe loss of lateral compartment joint space, with periarticular spurring. Medial compartment joint space appears well preserved. No fracture or dislocation, periosteal reaction or bone destruction, chondrocalcinosis or radiopaque intra-articular loose body is noted. Diffuse osteopenia. IMPRESSION: Prominent knee joint effusion Osteoarthritis of the patellofemoral and especially lateral compartments Osteopenia Reviewed, dictated and finalized at location B. TTING OFFICE ESCORT
== END 2023-06-19 14:42 | disposition home or self-care (01) ==
LOC: ANHBWCIMG 14:42
PROVIDERS: PCP Nurse Practitioner Adult Health; Visit Provider Nurse Practitioner Adult Health
DX: M17.11 Unilateral primary osteoarthritis, right knee (principal); M25.461 Effusion, right knee; M85.80 Other specified disorders of bone density and structure, unspecified site
CPT/HCPCS: 73564

== ENCOUNTER 2024-05-20 12:26 | Outpatient (CLI) | payer MEDICARE, OTHER, SELFPAY ==
--- NOTE | ~2024-05-20 | CT_ITS ---
EXAMINATION:CT lung screening DATE: 05/20/2024 12:39 INDICATION: Personal history of nicotine dependence. Smoker who quit 6 years ago with 40 pack year hi story. TECHNIQUE: Computed tomography (CT) of the chest was performed without intravenous contrast. Automate d exposure control and iterative reconstruction technique were employed. The dose-length product (DLP ) was 324.20 mGy-cm. COMPARISON: Chest CT 04/05/23 FINDINGS: There is mild emphysema. A calcified right lung nodule is consistent with old granulomatous disease. There is a 2 mm nodule in left lower lobe. No pleural effusion. The heart size is normal. T here are coronary artery calcifications. No pericardial effusion. There is bilateral gynecomastia. Th ere is mild thoracic spondylosis. There is chronic height loss of multiple vertebral bodies. IMPRESSION: 1. Lung-RADS category 2: Benign appearance or behavior. Continue annual screening with noncontrast lo w-dose chest CT in 12 months. Reviewed, dictated and finalized at location A. OL SOCIAL WORKER IMPRESSION: 1. Lung-RADS category 2: Benign appearance or behavior. Continue annual screeni ng with noncontrast low-dose chest CT in 12 months.
== END 2024-05-20 12:27 | disposition home or self-care (01) ==
PROVIDERS: PCP Family Medicine; Visit Provider Family Medicine
DX: Z12.2 Encounter for screening for malignant neoplasm of respiratory organs (principal); Z87.891 Personal history of nicotine dependence
CPT/HCPCS: 71271